=== PATIENT | male | born 1940 | race Caucasian/White ===

== ENCOUNTER 2022-08-26 11:38 | Inpatient (IN) | payer MEDICARE, MEDICAID ==
[~2022-08-26] VITALS: Ht 162.6 cm; Wt 86.6 kg
[~2022-08-26 11:38] MED LIST: ALBU18HF2 IH; ATEN50TA PO; CLOP75TA33 PO; FERR325T6 PO; FOLIC ACID PO; GLIP10TA10 PO; IBUP-2030 PO; LEVO500T2 MT; OLOP5DRO25 OP; OMEP20TA23 PO; PIOG45TA62 PO; SIMV-43 PO; SUCR1TAB PO; TAMS-11 PO
[2022-08-26] MEDS ORDERED: ALBUTEROL (0.083%) 2.5MG/3ML NEB HHN ONE ×2 (12:00→12:15)
[2022-08-26] MEDS ORDERED: VANCOMYCIN 1G PREMIX 200 ML IV ONE (12:00)
[2022-08-26] MEDS ORDERED: CALCIUM GLUCONATE 1GM PREMIX 50 ML IV ONE (12:00)
[2022-08-26] MEDS ORDERED: PIPERACILLIN/TAZ 3.375G PREMIX 50 ML IV ONE (12:00)
[2022-08-26] MEDS ORDERED: FUROSEMIDE 100MG/10ML VIAL IV STA (12:02)
[2022-08-26] MEDS ORDERED: DEXTROSE 50% WATER 50ML SYRINGE IV ONE (12:15)
[2022-08-26] MEDS ORDERED: INSULIN REGULAR (HUMULIN R) 300UNITS/3ML VIAL IV ONE (12:15)
[2022-08-26 12:53] LABS: BASOPHILS % 0.1 % (0.0-2.0); HEMATOCRIT. 29.5 % (42.0-52.0); HEMOGLOBIN. 9.6 g/dL (14.0-18.0); LYMPHOCYTES % 14.8 % (20.0-50.0); MEAN CORPUSCULAR HEMOGLOBIN 28.5 pg (28.0-32.0); MEAN CORPUSCULAR VOLUME 87.2 fL (80.0-94.0); MEAN PLATELET VOLUME 11.1 fl (7.4-10.4); MONOCYTES % 13.3 % (2.0-8.0); NEUTROPHILS % 71.8 % (40.0-76.0); PLATELET 79 x1000/uL (130-400); RED BLOOD CELL COUNT 3.38 mill/uL (4.7-6.1); RED CELL DISTRIBUTION WIDTH 15.8 % (11.6-14.6)
[2022-08-26 13:10] LABS: CHLORIDE 117 mEq/L (98-107)
[2022-08-26 13:14] LABS: BG BASE EXCESS -6.4 mmol/L (-2.0-2.0); BG CARBOXYHEMOGLOBIN 0.3 % (0.5-1.5); BG DEOXYHEMOGLOBIN 5.3 % (0.0-5.0); BG FRACTION INSPIRED OXYGEN 100; BG HCO3 ACT 16.5 mmol/L (22.0-26.0); BG METHEMOGLOBIN 0.4 % (0.0-1.5); BG OXYGEN SATURATION 94.7 % (92.0-98.5); BG PH 7.438 (7.350-7.450); BG PO2 79.2 mmHg (75.0-100.0); BG SAMPLE SITE RIGHT RADIAL; BG TOTAL HEMOGLOBIN 9.9 g/dL (12.0-18.0); BG VENT MODE HIGH FLOW
[2022-08-26 14:04] LABS: CREATINE KINASE 402 IU/L (39-308)
[2022-08-26] MEDS ORDERED: IPRATROPIUM/ALBUTEROL 0.5-3(2.5)MG/3ML NEB HHN PRN (14:15)
[2022-08-26] MEDS ORDERED: DEXTROSE 50% WATER 50ML SYRINGE IV PRN (14:15)
[2022-08-26] MEDS ORDERED: LEVOFLOXACIN 500MG PREMIX 100 ML IV NR (14:31)
[2022-08-26] MEDS: ASPIRIN 325MG EC TABLET PO ONE ×2 (15:56→16:26)
[2022-08-26] MEDS: BLOOD SUGAR DIAGNOSTIC STRIP TEST SCH ×2 (16:26→23:05)
[2022-08-26 16:36] LABS: CLARITY URINE CLEAR (CLEAR); COLOR URINE YELLOW (YELLOW); KETONES URINE TRACE (NEGATIVE); LEUKOCYTE ESTERASE URINE TRACE (NEGATIVE); NITRITE URINE NEGATIVE (NEGATIVE); OCCULT BLOOD URINE 1+ (NEGATIVE); PROTEIN URINE 1+ (NEGATIVE); SPECIFIC GRAVITY URINE 1.014 (1.005-1.030)
[2022-08-26] MEDS ORDERED: INSULIN LISPRO 100 UNITS/ML SUBCUT NR (16:45)
[2022-08-26] MEDS ORDERED: ACETYLCYSTEINE 200MG/ML 20% VIAL 4ML INH SCH (17:00)
[2022-08-26] MEDS: INSULIN LISPRO 100 UNITS/ML SUBCUT SCH (17:08)
[2022-08-26] MEDS ORDERED: FUROSEMIDE 40MG/4ML VIAL IVP SCH (17:15)
[2022-08-26 17:41] LABS: INR 1.5; PROTHROMBIN TIME 15.4 sec (9.6-11.0)
[2022-08-26] MEDS ORDERED: IPRATROPIUM/ALBUTEROL 0.5-3(2.5)MG/3ML NEB HHN SCH (18:00)
[2022-08-26] MEDS: METRONIDAZOLE 500MG TABLET PO SCH (22:00)
[2022-08-27] MEDS: INSULIN LISPRO 100 UNITS/ML SUBCUT SCH ×5 (00:29→21:32)
[2022-08-27 02:00] VITALS: BP 126/51
[2022-08-27 05:53] LABS: BASOPHILS % 0.1 % (0.0-2.0); EOSINOPHILS % 0.2 % (0.0-5.0); HEMATOCRIT. 27.3 % (42.0-52.0); HEMOGLOBIN. 9.2 g/dL (14.0-18.0); LYMPHOCYTES % 10.6 % (20.0-50.0); MEAN CORPUSCULAR HEMOGLOBIN 28.6 pg (28.0-32.0); MEAN PLATELET VOLUME 10.2 fl (7.4-10.4); MONOCYTES % 11.4 % (2.0-8.0); NEUTROPHILS % 77.7 % (40.0-76.0); PLATELET 69 x1000/uL (130-400); RED BLOOD CELL COUNT 3.21 mill/uL (4.7-6.1); RED CELL DISTRIBUTION WIDTH 15.5 % (11.6-14.6)
[2022-08-27] MEDS: METRONIDAZOLE 500MG TABLET PO SCH (06:00)
[2022-08-27] MEDS: BLOOD SUGAR DIAGNOSTIC STRIP TEST SCH ×4 (06:52→21:32)
[2022-08-27 07:22] LABS: CHLORIDE 119 mEq/L (98-107)
[2022-08-27 08:00] VITALS: BP 128/50
[2022-08-27] MEDS ORDERED: DEXT 5%/0.45% NACL 1000ML 1,000 ML IV SCH (08:00)
[2022-08-27] MEDS ORDERED: IPRATROPIUM BROMIDE (0.02%) 0.5MG/2.5ML NEB HHN PRN (08:11)
[2022-08-27] MEDS: METRONIDAZOLE 500 MG PREMIX 100 ML IV SCH ×2 (10:31→17:27)
[2022-08-27 10:41] LABS: BG BASE EXCESS -2.1 mmol/L (-2.0-2.0); BG CARBOXYHEMOGLOBIN 0.3 % (0.5-1.5); BG DEOXYHEMOGLOBIN 4.8 % (0.0-5.0); BG FRACTION INSPIRED OXYGEN 100; BG HCO3 ACT 21.5 mmol/L (22.0-26.0); BG OXYGEN SATURATION 95.2 % (92.0-98.5); BG OXYHEMOGLOBIN 94.9 % (94.0-97.0); BG PCO2 32.9 mmHg (35.0-45.0); BG PH 7.434 (7.350-7.450); BG PO2 83.9 mmHg (75.0-100.0); BG TOTAL HEMOGLOBIN 10.1 g/dL (12.0-18.0); BG VENT MODE VAPOTHERM
[2022-08-27] MEDS ORDERED: INFLUENZA VACCINE 05/PF 0.5 ML SYRINGE IM ONE (11:00)
[2022-08-27] MEDS ORDERED: PNEUMOCOCCAL 23-VAL P-SAC VAC 0.5 ML IM ONE (11:00)
[2022-08-27 12:00] VITALS: BP 126/65
[2022-08-27] MEDS: DEXTROSE 5% WATER 1,000 ML IV SCH (13:10)
[2022-08-27] MEDS ORDERED: LEVOFLOXACIN 250MG PREMIX 50 ML IV SCH (15:00)
[2022-08-27] MEDS: IPRATROPIUM BROMIDE (0.02%) 0.5MG/2.5ML NEB HHN SCH ×2 (15:35→20:50)
[2022-08-27] MEDS: ACETYLCYSTEINE 200MG/ML 20% VIAL 4ML INH SCH (15:36)
[2022-08-27 16:42] VITALS: BP 150/68
[2022-08-27 20:00] VITALS: BP 116/65
[2022-08-28] VITALS: BP 132/71
[2022-08-28] MEDS: IPRATROPIUM BROMIDE (0.02%) 0.5MG/2.5ML NEB HHN SCH ×6 (00:48→20:59)
[2022-08-28] MEDS: ACETYLCYSTEINE 200MG/ML 20% VIAL 4ML INH SCH ×3 (00:48→16:17)
[2022-08-28] MEDS: METRONIDAZOLE 500 MG PREMIX 100 ML IV SCH ×3 (01:12→18:26)
[2022-08-28 04:00] VITALS: BP 157/66
[2022-08-28 04:48] LABS: BASOPHILS % 0.1 % (0.0-2.0); EOSINOPHILS % 0.3 % (0.0-5.0); HEMATOCRIT. 29.7 % (42.0-52.0); HEMOGLOBIN. 10.1 g/dL (14.0-18.0); LYMPHOCYTES % 15.1 % (20.0-50.0); MEAN CORPUSCULAR HEMOGLOBIN 28.7 pg (28.0-32.0); MEAN CORPUSCULAR VOLUME 84.5 fL (80.0-94.0); MEAN PLATELET VOLUME 9.7 fl (7.4-10.4); MONOCYTES % 10.1 % (2.0-8.0); NEUTROPHILS % 74.4 % (40.0-76.0); PLATELET 79 x1000/uL (130-400); RED BLOOD CELL COUNT 3.52 mill/uL (4.7-6.1); RED CELL DISTRIBUTION WIDTH 15.2 % (11.6-14.6)
[2022-08-28 05:01] LABS: CHLORIDE 118 mEq/L (98-107)
[2022-08-28] MEDS: BLOOD SUGAR DIAGNOSTIC STRIP TEST SCH ×4 (06:14→21:18)
[2022-08-28] MEDS: INSULIN LISPRO 100 UNITS/ML SUBCUT SCH ×4 (06:25→21:23)
[2022-08-28] MEDS ORDERED: IPRATROPIUM BROMIDE (0.02%) 0.5MG/2.5ML NEB HHN PRN (07:58)
[2022-08-28 08:00] VITALS: BP 112/67
[2022-08-28] MEDS: DEXTROSE 5% WATER 1,000 ML IV SCH (09:42)
[2022-08-28 12:00] VITALS: BP 147/52
[2022-08-28] MEDS: VANCOMYCIN 1G PREMIX 200 ML IV SCH (13:03)
[2022-08-28] MEDS: LEVOFLOXACIN 500MG PREMIX 100 ML IV SCH (13:03)
[2022-08-28 16:00] VITALS: BP 123/50
[2022-08-28 20:00] VITALS: BP 121/52
[2022-08-29] VITALS: BP 144/64
[2022-08-29] MEDS: ACETYLCYSTEINE 200MG/ML 20% VIAL 4ML INH SCH ×3 (00:57→15:38)
[2022-08-29] MEDS: IPRATROPIUM BROMIDE (0.02%) 0.5MG/2.5ML NEB HHN SCH ×5 (00:57→21:08)
[2022-08-29] MEDS: METRONIDAZOLE 500 MG PREMIX 100 ML IV SCH ×3 (01:02→17:19)
[2022-08-29 04:00] VITALS: BP 137/60
[2022-08-29] MEDS: VANCOMYCIN 1G PREMIX 200 ML IV SCH (05:36)
[2022-08-29] MEDS: TAMSULOSIN HCL 0.4MG SR CAPSULE PO SCH (05:37)
[2022-08-29] MEDS: DEXTROSE 5% WATER 1,000 ML IV SCH (05:38)
[2022-08-29] MEDS: ONDANSETRON HCL 4MG/2ML INJ IV PRN ×2 (05:52→19:29)
[2022-08-29] MEDS: BLOOD SUGAR DIAGNOSTIC STRIP TEST SCH ×4 (06:44→20:47)
[2022-08-29] MEDS: OMEPRAZOLE 20MG CAPSULE EXTENDED RELEASE PO SCH ×3 (06:45→16:55)
[2022-08-29] MEDS: GLIPIZIDE 5MG TABLET PO SCH (06:45)
[2022-08-29] MEDS: INSULIN LISPRO 100 UNITS/ML SUBCUT SCH ×4 (06:54→20:45)
[2022-08-29 07:24] LABS: HEMATOCRIT. 30.5 % (42.0-52.0); HEMOGLOBIN. 10.3 g/dL (14.0-18.0); MEAN CORPUSCULAR HEMOGLOBIN 29.3 pg (28.0-32.0); MEAN CORPUSCULAR VOLUME 86.9 fL (80.0-94.0); MEAN PLATELET VOLUME 9.8 fl (7.4-10.4); PLATELET 81 x1000/uL (130-400); RED BLOOD CELL COUNT 3.51 mill/uL (4.7-6.1); RED CELL DISTRIBUTION WIDTH 15.8 % (11.6-14.6)
[2022-08-29 08:00] VITALS: BP 154/46
[2022-08-29 09:32] LABS: CHLORIDE 116 mEq/L (98-107)
[2022-08-29] MEDS: LEVOFLOXACIN 500MG PREMIX 100 ML IV SCH (11:09)
[2022-08-29] MEDS: CLOPIDOGREL 75MG TABLET PO SCH (11:58)
[2022-08-29 12:00] VITALS: BP 128/64
[2022-08-29 16:10] VITALS: BP 124/76
[2022-08-29] MEDS ORDERED: ACETAMINOPHEN 325MG TABLET PO PRN (16:45)
[2022-08-29 17:27] LABS: NUCLEATED RED BLOOD CELLS 2 /100 WBC; PLATELET ESTIMATE DECREASED
[2022-08-29 20:00] VITALS: BP 127/56
[2022-08-29] MEDS ORDERED: POTASSIUM CHLORIDE INJ 40 MEQ in DEXT 5% WATER 250 ML IV ONE (20:00)
[2022-08-29] MEDS: ATORVASTATIN CALCIUM 10MG TABLET PO SCH (20:44)
[2022-08-29] MEDS: PANTOPRAZOLE SODIUM 40 MG/VIAL IV SCH (20:47)
[2022-08-30] VITALS: BP 119/56
[2022-08-30] MEDS: VANCOMYCIN 1G PREMIX 200 ML IV SCH ×2 (00:44→18:23)
[2022-08-30] MEDS: DEXTROSE 5% WATER 1,000 ML IV SCH ×2 (00:44→21:22)
[2022-08-30] MEDS: ACETYLCYSTEINE 200MG/ML 20% VIAL 4ML INH SCH ×3 (00:54→17:32)
[2022-08-30] MEDS: IPRATROPIUM BROMIDE (0.02%) 0.5MG/2.5ML NEB HHN SCH ×6 (00:54→20:05)
[2022-08-30] MEDS: METRONIDAZOLE 500 MG PREMIX 100 ML IV SCH ×3 (02:08→18:17)
[2022-08-30 04:00] VITALS: BP 141/57
[2022-08-30] MEDS: BLOOD SUGAR DIAGNOSTIC STRIP TEST SCH ×4 (06:16→21:22)
[2022-08-30] MEDS: INSULIN LISPRO 100 UNITS/ML SUBCUT SCH ×4 (06:16→21:25)
[2022-08-30] MEDS: GLIPIZIDE 5MG TABLET PO SCH (07:10)
[2022-08-30 07:18] LABS: BASOPHILS % 0.1 % (0.0-2.0); EOSINOPHILS % 2.9 % (0.0-5.0); HEMATOCRIT. 32.7 % (42.0-52.0); HEMOGLOBIN. 10.8 g/dL (14.0-18.0); LYMPHOCYTES % 13.8 % (20.0-50.0); MEAN CORPUSCULAR VOLUME 87.6 fL (80.0-94.0); MEAN PLATELET VOLUME 9.7 fl (7.4-10.4); MONOCYTES % 10.7 % (2.0-8.0); NEUTROPHILS % 72.5 % (40.0-76.0); PLATELET 75 x1000/uL (130-400); RED BLOOD CELL COUNT 3.73 mill/uL (4.7-6.1)
[2022-08-30 07:34] LABS: CHLORIDE 116 mEq/L (98-107)
[2022-08-30 08:00] VITALS: BP 123/57
[2022-08-30] MEDS: PANTOPRAZOLE SODIUM 40 MG/VIAL IV SCH ×2 (09:52→21:20)
[2022-08-30] MEDS: CLOPIDOGREL 75MG TABLET PO SCH (09:53)
[2022-08-30] MEDS: TAMSULOSIN HCL 0.4MG SR CAPSULE PO SCH (09:53)
[2022-08-30] MEDS: LEVOFLOXACIN 500MG PREMIX 100 ML IV SCH (11:42)
[2022-08-30 12:00] VITALS: BP 151/69
[2022-08-30] MEDS: MEGESTROL ACETATE 400 MG/10 ML UDC PO SCH (12:15)
[2022-08-30 16:00] VITALS: BP 148/70
[2022-08-30 16:51] LABS: TOTAL IRON BINDING CAPACITY 212 ug/dL (250-450)
[2022-08-30 17:27] LABS: FERRITIN 1672 ng/mL (22-322)
[2022-08-30 17:35] LABS: FOLIC ACID (FOLATE) SERUM > 20.00 ng/mL (>5.38); VITAMIN B12 SERUM > 2000.0 pg/mL (211-911)
[2022-08-30 20:00] VITALS: BP 126/56
[2022-08-30] MEDS: ATORVASTATIN CALCIUM 10MG TABLET PO SCH (21:20)
[2022-08-31] VITALS: BP 141/68
[2022-08-31] MEDS: IPRATROPIUM BROMIDE (0.02%) 0.5MG/2.5ML NEB HHN SCH ×6 (00:30→20:12)
[2022-08-31] MEDS: ACETYLCYSTEINE 200MG/ML 20% VIAL 4ML INH SCH ×3 (00:31→17:14)
[2022-08-31] MEDS: METRONIDAZOLE 500 MG PREMIX 100 ML IV SCH ×3 (02:28→17:58)
[2022-08-31 04:00] VITALS: BP 138/54
[2022-08-31] MEDS: GLIPIZIDE 5MG TABLET PO SCH ×2 (06:43→07:03)
[2022-08-31] MEDS: INSULIN LISPRO 100 UNITS/ML SUBCUT SCH ×4 (06:44→21:38)
[2022-08-31] MEDS: BLOOD SUGAR DIAGNOSTIC STRIP TEST SCH ×4 (06:44→21:00)
[2022-08-31 06:50] LABS: INR 1.4; PROTHROMBIN TIME 14.2 sec (9.6-11.0)
[2022-08-31 06:54] LABS: BASOPHILS % 0.2 % (0.0-2.0); EOSINOPHILS % 3.2 % (0.0-5.0); HEMOGLOBIN. 10.8 g/dL (14.0-18.0); LYMPHOCYTES % 14.7 % (20.0-50.0); MEAN CORPUSCULAR HEMOGLOBIN 28.8 pg (28.0-32.0); MEAN CORPUSCULAR VOLUME 85.4 fL (80.0-94.0); MEAN PLATELET VOLUME 9.2 fl (7.4-10.4); MONOCYTES % 11.5 % (2.0-8.0); NEUTROPHILS % 70.4 % (40.0-76.0); PLATELET 80 x1000/uL (130-400); RED BLOOD CELL COUNT 3.75 mill/uL (4.7-6.1); RED CELL DISTRIBUTION WIDTH 15.4 % (11.6-14.6)
[2022-08-31 07:17] LABS: CHLORIDE 117 mEq/L (98-107)
[2022-08-31] MEDS: PANTOPRAZOLE SODIUM 40 MG/VIAL IV SCH ×2 (10:02→21:29)
[2022-08-31] MEDS: TAMSULOSIN HCL 0.4MG SR CAPSULE PO SCH (10:03)
[2022-08-31] MEDS: CLOPIDOGREL 75MG TABLET PO SCH (10:03)
[2022-08-31] MEDS: MEGESTROL ACETATE 400 MG/10 ML UDC PO SCH (10:03)
[2022-08-31 12:00] VITALS: BP 143/70
[2022-08-31 12:35] LABS: HEPATITIS B SURFACE ANTIGEN NEGATIVE
[2022-08-31] MEDS: VANCOMYCIN 1G PREMIX 200 ML IV SCH (12:44)
[2022-08-31] MEDS ORDERED: INSULIN GLARGINE 100 UNITS/ML SUBCUT NR (13:15)
[2022-08-31 16:00] VITALS: BP 133/61
[2022-08-31] MEDS ORDERED: BISACODYL 10MG SUPP PR NR (16:45)
[2022-08-31] MEDS: ONDANSETRON HCL 4MG/2ML INJ IV PRN (17:57)
[2022-08-31] MEDS: METOCLOPRAMIDE HCL 10MG/2ML VIAL IV SCH (17:57)
[2022-08-31] MEDS: DEXTROSE 5% WATER 1,000 ML IV SCH (17:58)
[2022-08-31 20:00] VITALS: BP 106/76
[2022-08-31] MEDS: ATORVASTATIN CALCIUM 10MG TABLET PO SCH (21:29)
[2022-08-31] MEDS: INSULIN GLARGINE 100 UNITS/ML SUBCUT SCH (21:38)
[2022-09-01] VITALS (7 sets, daily range): BP systolic 88–133; BP diastolic 38–58
[2022-09-01] MEDS: METOCLOPRAMIDE HCL 10MG/2ML VIAL IV SCH ×4 (00:09→18:03)
[2022-09-01] MEDS: IPRATROPIUM BROMIDE (0.02%) 0.5MG/2.5ML NEB HHN SCH ×6 (00:23→21:08)
[2022-09-01] MEDS: METRONIDAZOLE 500 MG PREMIX 100 ML IV SCH (01:05)
[2022-09-01 05:44] LABS: BASOPHILS % 0.4 % (0.0-2.0); EOSINOPHILS % 3.6 % (0.0-5.0); HEMATOCRIT. 32.1 % (42.0-52.0); HEMOGLOBIN. 10.8 g/dL (14.0-18.0); LYMPHOCYTES % 19.7 % (20.0-50.0); MEAN CORPUSCULAR HEMOGLOBIN 28.9 pg (28.0-32.0); MEAN CORPUSCULAR VOLUME 85.7 fL (80.0-94.0); MEAN PLATELET VOLUME 9.1 fl (7.4-10.4); MONOCYTES % 11.5 % (2.0-8.0); NEUTROPHILS % 64.8 % (40.0-76.0); PLATELET 86 x1000/uL (130-400); RED BLOOD CELL COUNT 3.75 mill/uL (4.7-6.1); RED CELL DISTRIBUTION WIDTH 15.7 % (11.6-14.6)
[2022-09-01 05:46] LABS: CHLORIDE 115 mEq/L (98-107)
[2022-09-01] MEDS: BLOOD SUGAR DIAGNOSTIC STRIP TEST SCH ×4 (05:53→21:00)
[2022-09-01] MEDS: VANCOMYCIN 1G PREMIX 200 ML IV SCH (05:53)
[2022-09-01] MEDS ORDERED: POTASSIUM CHLORIDE 20MEQ/PACKET PO NR (06:15)
[2022-09-01] MEDS: INSULIN LISPRO 100 UNITS/ML SUBCUT SCH ×4 (07:35→21:00)
[2022-09-01] MEDS: CLOPIDOGREL 75MG TABLET PO SCH (09:57)
[2022-09-01] MEDS: TAMSULOSIN HCL 0.4MG SR CAPSULE PO SCH (09:58)
[2022-09-01] MEDS: PANTOPRAZOLE SODIUM 40 MG/VIAL IV SCH ×2 (09:58→21:07)
[2022-09-01] MEDS: GLIPIZIDE 5MG TABLET PO SCH (09:58)
[2022-09-01] MEDS: MEGESTROL ACETATE 400 MG/10 ML UDC PO SCH (09:58)
[2022-09-01] MEDS: INSULIN GLARGINE 100 UNITS/ML SUBCUT SCH ×2 (10:00→22:00)
[2022-09-01] MEDS: DEXTROSE 5% WATER 1,000 ML IV SCH (12:22)
[2022-09-01] MEDS: DEXTROSE 50% WATER 50ML SYRINGE IV PRN (18:18)
[2022-09-01] MEDS: ATORVASTATIN CALCIUM 10MG TABLET PO SCH (21:07)
[2022-09-02] VITALS: BP 138/54
[2022-09-02] MEDS: METOCLOPRAMIDE HCL 10MG/2ML VIAL IV SCH ×5 (00:42→23:43)
[2022-09-02] MEDS: DEXTROSE 50% WATER 50ML SYRINGE IV PRN (00:44)
[2022-09-02] MEDS: VANCOMYCIN 1G PREMIX 200 ML IV SCH ×2 (00:44→17:36)
[2022-09-02] MEDS: IPRATROPIUM BROMIDE (0.02%) 0.5MG/2.5ML NEB HHN SCH ×4 (00:52→12:24)
[2022-09-02 04:00] VITALS: BP 146/76
[2022-09-02] MEDS: GLIPIZIDE 5MG TABLET PO SCH (05:14)
[2022-09-02] MEDS: BLOOD SUGAR DIAGNOSTIC STRIP TEST SCH ×4 (07:10→20:41)
[2022-09-02] MEDS: INSULIN LISPRO 100 UNITS/ML SUBCUT SCH ×4 (07:12→20:41)
[2022-09-02 08:00] VITALS: BP 130/73
[2022-09-02] MEDS: DEXTROSE 5% WATER 1,000 ML IV SCH (08:08)
[2022-09-02] MEDS: CLOPIDOGREL 75MG TABLET PO SCH (08:08)
[2022-09-02] MEDS: PANTOPRAZOLE SODIUM 40 MG/VIAL IV SCH ×2 (08:08→20:40)
[2022-09-02] MEDS: MEGESTROL ACETATE 400 MG/10 ML UDC PO SCH (08:08)
[2022-09-02] MEDS: TAMSULOSIN HCL 0.4MG SR CAPSULE PO SCH (08:11)
[2022-09-02] MEDS: INSULIN GLARGINE 100 UNITS/ML SUBCUT SCH ×2 (10:00→22:02)
[2022-09-02 12:00] VITALS: BP 137/68
[2022-09-02 12:00] LABS: BASOPHILS % 0.1 % (0.0-2.0); EOSINOPHILS % 1.8 % (0.0-5.0); HEMATOCRIT. 33.1 % (42.0-52.0); HEMOGLOBIN. 11.1 g/dL (14.0-18.0); MEAN CORPUSCULAR HEMOGLOBIN 28.9 pg (28.0-32.0); MEAN CORPUSCULAR VOLUME 85.9 fL (80.0-94.0); MONOCYTES % 9.8 % (2.0-8.0); NEUTROPHILS % 79.3 % (40.0-76.0); PLATELET 82 x1000/uL (130-400); RED BLOOD CELL COUNT 3.85 mill/uL (4.7-6.1); RED CELL DISTRIBUTION WIDTH 15.8 % (11.6-14.6)
[2022-09-02] MEDS ORDERED: SORBITOL 70% SOLN 30ML PO NR (14:45)
[2022-09-02 16:00] VITALS: BP 107/71
[2022-09-02 20:00] VITALS: BP 136/88
[2022-09-02] MEDS: ATORVASTATIN CALCIUM 10MG TABLET PO SCH (20:41)
[2022-09-03] VITALS (7 sets, daily range): BP systolic 101–138; BP diastolic 47–65
[2022-09-03] MEDS: METOCLOPRAMIDE HCL 10MG/2ML VIAL IV SCH ×4 (05:23→23:52)
[2022-09-03 06:13] LABS: BASOPHILS % 0.2 % (0.0-2.0); EOSINOPHILS % 2.4 % (0.0-5.0); HEMATOCRIT. 30.4 % (42.0-52.0); HEMOGLOBIN. 10.4 g/dL (14.0-18.0); LYMPHOCYTES % 15.9 % (20.0-50.0); MEAN CORPUSCULAR HEMOGLOBIN 28.8 pg (28.0-32.0); MEAN CORPUSCULAR VOLUME 84.8 fL (80.0-94.0); MEAN PLATELET VOLUME 9.1 fl (7.4-10.4); MONOCYTES % 9.5 % (2.0-8.0); PLATELET 74 x1000/uL (130-400); RED BLOOD CELL COUNT 3.59 mill/uL (4.7-6.1); RED CELL DISTRIBUTION WIDTH 15.3 % (11.6-14.6)
[2022-09-03] MEDS: DEXTROSE 50% WATER 50ML SYRINGE IV PRN (06:15)
[2022-09-03] MEDS: BLOOD SUGAR DIAGNOSTIC STRIP TEST SCH ×4 (06:29→21:12)
[2022-09-03] MEDS: INSULIN LISPRO 100 UNITS/ML SUBCUT SCH ×4 (06:29→21:00)
[2022-09-03] MEDS: GLIPIZIDE 5MG TABLET PO SCH (06:30)
[2022-09-03] MEDS: PANTOPRAZOLE SODIUM 40 MG/VIAL IV SCH ×2 (09:10→22:00)
[2022-09-03] MEDS: MEGESTROL ACETATE 400 MG/10 ML UDC PO SCH (09:10)
[2022-09-03] MEDS: CLOPIDOGREL 75MG TABLET PO SCH (09:11)
[2022-09-03] MEDS: TAMSULOSIN HCL 0.4MG SR CAPSULE PO SCH (09:11)
[2022-09-03] MEDS ORDERED: POTASSIUM CHLORIDE 20MEQ/PACKET PO NR (10:15)
[2022-09-03] MEDS ORDERED: BISACODYL 10MG SUPP PR NR (12:00)
[2022-09-03 13:35] LABS: BG BASE EXCESS 1.1 mmol/L (-2.0-2.0); BG CARBOXYHEMOGLOBIN 1.6 % (0.5-1.5); BG DEOXYHEMOGLOBIN 9.1 % (0.0-5.0); BG FRACTION INSPIRED OXYGEN 21; BG HCO3 ACT 24.3 mmol/L (22.0-26.0); BG METHEMOGLOBIN 0.2 % (0.0-1.5); BG OXYGEN SATURATION 90.7 % (92.0-98.5); BG OXYHEMOGLOBIN 89.1 % (94.0-97.0); BG PCO2 33.7 mmHg (35.0-45.0); BG PH 7.476 (7.350-7.450); BG PO2 53.6 mmHg (75.0-100.0); BG SAMPLE SITE LEFT BRACHIAL; BG TOTAL HEMOGLOBIN 11.5 g/dL (12.0-18.0); BG VENT MODE ROOM AIR
[2022-09-03] MEDS: ATORVASTATIN CALCIUM 10MG TABLET PO SCH (21:20)
[2022-09-04] VITALS: BP 109/77
[2022-09-04 04:00] VITALS: BP 121/56
[2022-09-04] MEDS: METOCLOPRAMIDE HCL 10MG/2ML VIAL IV SCH ×3 (05:33→17:33)
[2022-09-04] MEDS: BLOOD SUGAR DIAGNOSTIC STRIP TEST SCH ×3 (06:06→17:25)
[2022-09-04] MEDS: INSULIN LISPRO 100 UNITS/ML SUBCUT SCH ×3 (06:06→17:25)
[2022-09-04 06:26] LABS: BASOPHILS % 0.2 % (0.0-2.0); EOSINOPHILS % 2.8 % (0.0-5.0); HEMATOCRIT. 29.1 % (42.0-52.0); LYMPHOCYTES % 12.2 % (20.0-50.0); MEAN CORPUSCULAR HEMOGLOBIN 29.2 pg (28.0-32.0); MEAN CORPUSCULAR VOLUME 85.3 fL (80.0-94.0); MONOCYTES % 13.1 % (2.0-8.0); NEUTROPHILS % 71.7 % (40.0-76.0); PLATELET 76 x1000/uL (130-400); RED BLOOD CELL COUNT 3.42 mill/uL (4.7-6.1); RED CELL DISTRIBUTION WIDTH 15.6 % (11.6-14.6)
[2022-09-04 08:00] VITALS: BP 129/63
[2022-09-04] MEDS: TAMSULOSIN HCL 0.4MG SR CAPSULE PO SCH (08:54)
[2022-09-04] MEDS: CLOPIDOGREL 75MG TABLET PO SCH (08:54)
[2022-09-04] MEDS: GLIPIZIDE 5MG TABLET PO SCH (08:54)
[2022-09-04] MEDS: PANTOPRAZOLE SODIUM 40 MG/VIAL IV SCH (08:54)
[2022-09-04] MEDS: MEGESTROL ACETATE 400 MG/10 ML UDC PO SCH (08:54)
[2022-09-04 12:00] VITALS: BP 119/67
[2022-09-04] MEDS: DEXTROSE 5% WATER 1,000 ML IV SCH ×2 (12:50→12:51)
[2022-09-04 16:00] VITALS: BP 122/63
[2022-09-04 17:47] VITALS: BP 122/63
== END 2022-09-04 20:14 | disposition home or self-care (01) | DRG 177 ==
LOC: ER 11:38 → 8WST 13:46 → EDBEDREQSVC 23:54 → CANRESERV 08-27 00:04 → ENRESERV 08-27 00:04
PROVIDERS: ADMIT Internal Medicine; ATTEND Internal Medicine
PROC: 5A0935A Assistance with Respiratory Ventilation, Less than 24 Consecutive Hours, High Flow/Velocity Cannula (ICD-10-PCS; principal; 2022-08-26)
PROC: 5A0935A Assistance with Respiratory Ventilation, Less than 24 Consecutive Hours, High Flow/Velocity Cannula (ICD-10-PCS; 2022-08-27)
PROC: 5A0935A Assistance with Respiratory Ventilation, Less than 24 Consecutive Hours, High Flow/Velocity Cannula (ICD-10-PCS; 2022-08-28)
PROC: 5A0935A Assistance with Respiratory Ventilation, Less than 24 Consecutive Hours, High Flow/Velocity Cannula (ICD-10-PCS; 2022-08-29)
PROC: 5A0935A Assistance with Respiratory Ventilation, Less than 24 Consecutive Hours, High Flow/Velocity Cannula (ICD-10-PCS; 2022-08-30)
PROC: 5A0935A Assistance with Respiratory Ventilation, Less than 24 Consecutive Hours, High Flow/Velocity Cannula (ICD-10-PCS; 2022-08-31)
PROC: 5A0935A Assistance with Respiratory Ventilation, Less than 24 Consecutive Hours, High Flow/Velocity Cannula (ICD-10-PCS; 2022-09-01)
DX: J69.0 Pneumonitis due to inhalation of food and vomit (principal); I50.41 Acute combined systolic (congestive) and diastolic (congestive) heart failure; J96.01 Acute respiratory failure with hypoxia; E87.1 Hypo-osmolality and hyponatremia; E87.0 Hyperosmolality and hypernatremia; D68.9 Coagulation defect, unspecified; E87.20 Acidosis, unspecified; R47.01 Aphasia; D64.9 Anemia, unspecified; E87.5 Hyperkalemia; Z20.822 Contact with and (suspected) exposure to COVID-19; E87.6 Hypokalemia; E11.65 Type 2 diabetes mellitus with hyperglycemia; R74.01 Elevation of levels of liver transaminase levels; E78.5 Hyperlipidemia, unspecified; D69.6 Thrombocytopenia, unspecified; K75.9 Inflammatory liver disease, unspecified; I25.10 Atherosclerotic heart disease of native coronary artery without angina pectoris; I11.0 Hypertensive heart disease with heart failure; K59.00 Constipation, unspecified; Z79.899 Other long term (current) drug therapy; Z74.01 Bed confinement status; Z99.3 Dependence on wheelchair; I25.2 Old myocardial infarction
CPT/HCPCS: 36415; 36600; 71045; 71250; 74018; 76700; 80048; 80053; 80076; 80202; 81003; 82375; 82550; 82607; 82728; 82746; 82805; 82962; 83036; 83540; 83550; 83605; 83615; 83880; 84484; 85025; 85044; 86705; 86709; 86803; 86850; 86900; 87340; 87426; 87804; 90686; 90732; 92610; 93005; 94640; 94644; 94667; 97161; 99291; A6261; C1893; C9113; C9803; J0610; J1815; J1940; J1956; J2405; J2543; J2765; J3370; J3480; J3490; J7060; J7070; J7608

== ENCOUNTER 2022-09-11 13:26 | Inpatient (IN) | payer MEDICARE, MEDICAID ==
[~2022-09-11] VITALS: Ht 165.1 cm; Wt 76.7 kg
[~2022-09-11 13:26] MED LIST changes: -LEVO500T2 MT
[2022-09-11 14:33] LABS: BG BASE EXCESS -1.3 mmol/L (-2.0-2.0); BG CARBOXYHEMOGLOBIN 0.3 % (0.5-1.5); BG DEOXYHEMOGLOBIN 6.7 % (0.0-5.0); BG HCO3 ACT 22.8 mmol/L (22.0-26.0); BG METHEMOGLOBIN 0.3 % (0.0-1.5); BG OXYGEN SATURATION 93.3 % (92.0-98.5); BG OXYHEMOGLOBIN 92.7 % (94.0-97.0); BG PCO2 35.8 mmHg (35.0-45.0); BG PH 7.422 (7.350-7.450); BG PO2 67.8 mmHg (75.0-100.0); BG SAMPLE SITE LEFT BRACHIAL; BG TOTAL HEMOGLOBIN 10.5 g/dL (12.0-18.0); BG VENT MODE ROOM AIR
[2022-09-11 16:01] LABS: BASOPHILS % 0.5 % (0.0-2.0); EOSINOPHILS % 2.6 % (0.0-5.0); HEMATOCRIT. 30.9 % (42.0-52.0); HEMOGLOBIN. 10.3 g/dL (14.0-18.0); LYMPHOCYTES % 19.1 % (20.0-50.0); MEAN CORPUSCULAR HEMOGLOBIN 28.7 pg (28.0-32.0); MEAN CORPUSCULAR VOLUME 86.1 fL (80.0-94.0); MEAN PLATELET VOLUME 8.5 fl (7.4-10.4); MONOCYTES % 9.8 % (2.0-8.0); PLATELET 155 x1000/uL (130-400); RED BLOOD CELL COUNT 3.59 mill/uL (4.7-6.1); RED CELL DISTRIBUTION WIDTH 15.8 % (11.6-14.6)
[2022-09-11 16:10] LABS: CHLORIDE 114 mEq/L (98-107)
[2022-09-11 16:16] LABS: D-DIMER 7.99 mg/L FEU (<0.50); INR 1.2; PARTIAL THROMBOPLASTIN TIME 31.2 sec (23.4-31.0); PROTHROMBIN TIME 12.3 sec (9.6-11.0)
[2022-09-11 20:14] LABS: CLARITY URINE CLEAR (CLEAR); COLOR URINE YELLOW (YELLOW); KETONES URINE TRACE (NEGATIVE); LEUKOCYTE ESTERASE URINE 1+ (NEGATIVE); NITRITE URINE NEGATIVE (NEGATIVE); OCCULT BLOOD URINE 2+ (NEGATIVE); PROTEIN URINE TRACE (NEGATIVE); SPECIFIC GRAVITY URINE 1.017 (1.005-1.030); UROBILINOGEN URINE 0.2 E.U./dL (0.2-1.0)
[2022-09-11 22:30] VITALS: BP 131/57
[2022-09-12] VITALS: BP 122/54
[2022-09-12 01:20] LABS: BASOPHILS % 0.6 % (0.0-2.0); EOSINOPHILS % 2.5 % (0.0-5.0); HEMATOCRIT. 28.3 % (42.0-52.0); HEMOGLOBIN. 9.5 g/dL (14.0-18.0); LYMPHOCYTES % 19.2 % (20.0-50.0); MEAN CORPUSCULAR HEMOGLOBIN 28.7 pg (28.0-32.0); MEAN CORPUSCULAR VOLUME 85.3 fL (80.0-94.0); MEAN PLATELET VOLUME 8.3 fl (7.4-10.4); NEUTROPHILS % 66.7 % (40.0-76.0); PLATELET 148 x1000/uL (130-400); RED BLOOD CELL COUNT 3.31 mill/uL (4.7-6.1); RED CELL DISTRIBUTION WIDTH 15.3 % (11.6-14.6)
[2022-09-12 04:00] VITALS: BP 117/54
[2022-09-12] MEDS ORDERED: BLOOD SUGAR DIAGNOSTIC STRIP TEST SCH ×2 (07:40)
[2022-09-12 08:00] VITALS: BP 120/47
[2022-09-12] MEDS: ATENOLOL 50 MG TABLET PO SCH (08:17)
[2022-09-12] MEDS: CLOPIDOGREL 75MG TABLET PO SCH (08:19)
[2022-09-12] MEDS: OMEPRAZOLE 20MG CAPSULE EXTENDED RELEASE PO SCH (08:19)
[2022-09-12] MEDS: FERROUS SULFATE 325MG TABLET PO SCH ×2 (08:19→16:55)
[2022-09-12] MEDS: TAMSULOSIN HCL 0.4MG SR CAPSULE PO SCH (08:20)
[2022-09-12] MEDS ORDERED: DEXTROSE 5% WATER 1,000 ML IV SCH (11:45)
[2022-09-12 12:00] VITALS: BP 129/38
[2022-09-12] MEDS ORDERED: DEXTROSE 50% WATER 50ML SYRINGE IV PRN ×3 (12:00)
[2022-09-12] MEDS: BLOOD SUGAR DIAGNOSTIC STRIP TEST SCH ×3 (12:07→20:29)
[2022-09-12] MEDS: ENOXAPARIN 40MG/0.4ML SYR SUBCUT SCH (12:18)
[2022-09-12] MEDS: INSULIN LISPRO 100 UNITS/ML SUBCUT SCH ×3 (12:23→20:44)
[2022-09-12] MEDS ORDERED: IPRATROPIUM/ALBUTEROL 0.5-3(2.5)MG/3ML NEB HHN PRN (14:00)
[2022-09-12] MEDS ORDERED: IPRATROPIUM BROMIDE (0.02%) 0.5MG/2.5ML NEB HHN PRN (14:15)
[2022-09-12] MEDS ORDERED: ALBUTEROL (0.083%) 2.5MG/3ML NEB HHN PRN (14:15)
[2022-09-12 16:00] VITALS: BP 115/46
[2022-09-12 20:30] VITALS: BP 111/46
[2022-09-13] VITALS: BP 116/47
[2022-09-13 04:30] VITALS: BP 111/45
[2022-09-13] MEDS: BLOOD SUGAR DIAGNOSTIC STRIP TEST SCH ×4 (06:44→20:32)
[2022-09-13] MEDS: INSULIN LISPRO 100 UNITS/ML SUBCUT SCH ×4 (07:34→20:49)
[2022-09-13 08:00] VITALS: BP 132/48
[2022-09-13] MEDS: ATENOLOL 50 MG TABLET PO SCH (08:14)
[2022-09-13] MEDS: FUROSEMIDE 40MG/4ML VIAL IVP SCH (08:14)
[2022-09-13] MEDS: CLOPIDOGREL 75MG TABLET PO SCH (08:15)
[2022-09-13] MEDS: OMEPRAZOLE 20MG CAPSULE EXTENDED RELEASE PO SCH (08:15)
[2022-09-13] MEDS: TAMSULOSIN HCL 0.4MG SR CAPSULE PO SCH (08:15)
[2022-09-13] MEDS: FERROUS SULFATE 325MG TABLET PO SCH ×2 (08:15→16:31)
[2022-09-13 12:00] VITALS: BP 113/58
[2022-09-13] MEDS ORDERED: IPRATROPIUM BROMIDE (0.02%) 0.5MG/2.5ML NEB HHN PRN (12:00)
[2022-09-13] MEDS ORDERED: IPRATROPIUM/ALBUTEROL 0.5-3(2.5)MG/3ML NEB HHN SCH (12:00)
[2022-09-13] MEDS ORDERED: DOCUSATE SODIUM 250MG CAPSULE PO PRN (12:00)
[2022-09-13] MEDS: ENOXAPARIN 40MG/0.4ML SYR SUBCUT SCH (12:16)
[2022-09-13] MEDS: DOCUSATE SODIUM 250MG CAPSULE PO SCH (12:16)
[2022-09-13] MEDS: IPRATROPIUM BROMIDE (0.02%) 0.5MG/2.5ML NEB HHN SCH ×3 (13:27→20:12)
[2022-09-13] MEDS: ALBUTEROL (0.083%) 2.5MG/3ML NEB HHN SCH ×3 (13:27→20:12)
[2022-09-13 16:00] VITALS: BP 140/62
[2022-09-13 20:00] VITALS: BP 101/41
[2022-09-14] VITALS: BP 113/53
[2022-09-14] MEDS: ALBUTEROL (0.083%) 2.5MG/3ML NEB HHN SCH ×5 (00:03→17:23)
[2022-09-14] MEDS: IPRATROPIUM BROMIDE (0.02%) 0.5MG/2.5ML NEB HHN SCH ×5 (00:03→17:23)
[2022-09-14 03:54] VITALS: BP 133/52
[2022-09-14] MEDS: BLOOD SUGAR DIAGNOSTIC STRIP TEST SCH ×3 (06:40→17:40)
[2022-09-14 08:00] VITALS: BP 133/61
[2022-09-14] MEDS ORDERED: FAMOTIDINE 20MG TABLET PO SCH (09:00)
[2022-09-14] MEDS: FERROUS SULFATE 325MG TABLET PO SCH ×2 (09:48→17:00)
[2022-09-14] MEDS: DOCUSATE SODIUM 250MG CAPSULE PO SCH (09:48)
[2022-09-14] MEDS: FUROSEMIDE 40MG/4ML VIAL IVP SCH (09:48)
[2022-09-14] MEDS: CLOPIDOGREL 75MG TABLET PO SCH (09:49)
[2022-09-14] MEDS: TAMSULOSIN HCL 0.4MG SR CAPSULE PO SCH (09:49)
[2022-09-14] MEDS: ATENOLOL 50 MG TABLET PO SCH (09:49)
[2022-09-14] MEDS: INSULIN LISPRO 100 UNITS/ML SUBCUT SCH ×3 (09:56→18:40)
[2022-09-14] MEDS: ENOXAPARIN 40MG/0.4ML SYR SUBCUT SCH (13:11)
[2022-09-14 16:00] VITALS: BP 122/76
[2022-09-14 18:10] VITALS: BP 117/44
== END 2022-09-14 18:50 | disposition home or self-care (01) | DRG 291 ==
LOC: ER 13:26 → 7WST 16:23 → EDBEDREQ 16:36 → ENRESERV 21:29
PROVIDERS: ADMIT Internal Medicine; ATTEND Internal Medicine
DX: I11.0 Hypertensive heart disease with heart failure (principal); I50.41 Acute combined systolic (congestive) and diastolic (congestive) heart failure; I69.351 Hemiplegia and hemiparesis following cerebral infarction affecting right dominant side; E11.9 Type 2 diabetes mellitus without complications; E78.5 Hyperlipidemia, unspecified; K76.9 Liver disease, unspecified; Z20.822 Contact with and (suspected) exposure to COVID-19; Z87.01 Personal history of pneumonia (recurrent); Z79.899 Other long term (current) drug therapy; I69.320 Aphasia following cerebral infarction
CPT/HCPCS: 36415; 36600; 71045; 76705; 80048; 80053; 81003; 82140; 82375; 82805; 82962; 83036; 83605; 83880; 84484; 85025; 85379; 87426; 87804; 93005; 93306; 93970; 94640; 99291; C9803; J1650; J1815; J1940

== ENCOUNTER 2022-10-01 14:09 | Inpatient (IN) | payer MEDICARE, MEDICAID ==
[~2022-10-01] VITALS: Ht 162.6 cm; Wt 58.1 kg
[2022-10-01] MEDS ORDERED: SODIUM CHLORIDE 0.9% 1,000 ML IV ONE (14:30)
[2022-10-01 15:25] LABS: BASOPHILS % 0.2 % (0.0-2.0); EOSINOPHILS % 0.2 % (0.0-5.0); HEMATOCRIT. 29.4 % (42.0-52.0); HEMOGLOBIN. 9.6 g/dL (14.0-18.0); LYMPHOCYTES % 12.6 % (20.0-50.0); MEAN CORPUSCULAR HEMOGLOBIN 28.2 pg (28.0-32.0); MEAN CORPUSCULAR VOLUME 86.3 fL (80.0-94.0); MEAN PLATELET VOLUME 9.7 fl (7.4-10.4); MONOCYTES % 6.7 % (2.0-8.0); NEUTROPHILS % 80.3 % (40.0-76.0); PLATELET 120 x1000/uL (130-400); RED BLOOD CELL COUNT 3.41 mill/uL (4.7-6.1); RED CELL DISTRIBUTION WIDTH 16.4 % (11.6-14.6)
[2022-10-01] MEDS ORDERED: AZITHROMYCIN 500MG/250ML 250 ML IV NR (15:30)
[2022-10-01] MEDS ORDERED: FUROSEMIDE 40MG/4ML VIAL IVP NR (15:30)
[2022-10-01] MEDS ORDERED: CEFEPIME 2,000 MG in DEXT 5% WATER 100 ML IV NR (15:30)
[2022-10-01] MEDS ORDERED: VANCOMYCIN 1G PREMIX 200 ML IV NR (15:30)
[2022-10-01 15:46] LABS: CHLORIDE 112 mEq/L (98-107)
[2022-10-01 15:56] LABS: BETA HYDROXYBUTYRATE 1.6 mMol/L (0.0-0.3)
[2022-10-01] MEDS ORDERED: ETOMIDATE 2MG/ML 10ML VIAL IV ONE (16:15)
[2022-10-01] MEDS ORDERED: SUCCINYLCHOLINE CHLORIDE 200MG/10ML IV ONE (16:15)
[2022-10-01] MEDS ORDERED: FENTANYL 2500MCG/250ML PMX 250 ML IV ONE ×2 (16:30→17:00)
[2022-10-01] MEDS ORDERED: VECURONIUM BROMIDE 10 MG/VIAL IV ONE (16:30)
[2022-10-01] MEDS ORDERED: VECURONIUM BROMIDE 10 MG/VIAL IV NR (16:30)
[2022-10-01] MEDS ORDERED: PROPOFOL 10MG/ML 100ML 100 ML IV SCH (16:30)
[2022-10-01] MEDS ORDERED: DOCUSATE SODIUM 100MG CAPSULE PO PRN (18:45)
[2022-10-01] MEDS ORDERED: IPRATROPIUM/ALBUTEROL 0.5-3(2.5)MG/3ML NEB HHN PRN (18:45)
[2022-10-01] MEDS ORDERED: FUROSEMIDE 40MG/4ML VIAL IV SCH (18:45)
[2022-10-01] MEDS ORDERED: ACETAMINOPHEN 325MG TABLET PO PRN (18:45)
[2022-10-01] MEDS ORDERED: ONDANSETRON HCL 4MG/2ML INJ IV PRN (18:45)
[2022-10-01] MEDS ORDERED: TRAMADOL 50MG TABLET PO PRN (18:45)
[2022-10-01] MEDS ORDERED: MAGNESIUM/ALUMINUM HYDROXIDE/SIMETHICONE 30ML UDC PO PRN (18:45)
[2022-10-01] MEDS ORDERED: DEXTROSE 50% WATER 50ML SYRINGE IV PRN (19:00)
[2022-10-01] MEDS ORDERED: BLOOD SUGAR DIAGNOSTIC STRIP TEST SCH (19:00)
[2022-10-01] MEDS ORDERED: INSULIN LISPRO 100 UNITS/ML SUBCUT SCH (19:00)
[2022-10-01 19:05] LABS: CLARITY URINE CLEAR (CLEAR); COLOR URINE YELLOW (YELLOW); KETONES URINE TRACE (NEGATIVE); LEUKOCYTE ESTERASE URINE 1+ (NEGATIVE); NITRITE URINE NEGATIVE (NEGATIVE); OCCULT BLOOD URINE TRACE (NEGATIVE); PROTEIN URINE TRACE (NEGATIVE); SPECIFIC GRAVITY URINE 1.016 (1.005-1.030); UROBILINOGEN URINE 0.2 E.U./dL (0.2-1.0)
[2022-10-01] MEDS ORDERED: FENTANYL 2500MCG/250ML PMX 250 ML IV PRN (19:30)
[2022-10-01] MEDS ORDERED: MIDAZOLAM HCL 100 MG in SODIUM CHLORIDE 0.9% 80 ML IV PRN (19:30)
[2022-10-01 19:43] LABS: BG BASE EXCESS -2.6 mmol/L (-2.0-2.0); BG CARBOXYHEMOGLOBIN 0.3 % (0.5-1.5); BG DEOXYHEMOGLOBIN 5.7 % (0.0-5.0); BG FRACTION INSPIRED OXYGEN 100; BG HCO3 ACT 23.3 mmol/L (22.0-26.0); BG METHEMOGLOBIN 0.2 % (0.0-1.5); BG OXYGEN SATURATION 94.3 % (92.0-98.5); BG OXYHEMOGLOBIN 93.8 % (94.0-97.0); BG PCO2 45.4 mmHg (35.0-45.0); BG PH 7.329 (7.350-7.450); BG PO2 80.4 mmHg (75.0-100.0); BG SAMPLE SITE LEFT RADIAL; BG TOTAL HEMOGLOBIN 9.6 g/dL (12.0-18.0); BG VENT MODE VENT - AC
[2022-10-01] MEDS: CARVEDILOL 3.125 MG TABLET PO SCH (21:00)
[2022-10-01] MEDS: ENOXAPARIN 40MG/0.4ML SYR SUBCUT SCH (21:24)
[2022-10-01] MEDS: BLOOD SUGAR DIAGNOSTIC STRIP TEST SCH (21:24)
[2022-10-01] MEDS: PANTOPRAZOLE SODIUM 40 MG/VIAL IV SCH (21:25)
[2022-10-01] MEDS: INSULIN LISPRO 100 UNITS/ML SUBCUT SCH (21:40)
[2022-10-01] MEDS ORDERED: PIPERACILLIN/TAZ 3.375G PREMIX 50 ML IV NR (21:45)
[2022-10-01] MEDS ORDERED: PIPERACILLIN/TAZOBACTAM 3.375 G in DEXTROSE 5% WATER 50 ML IV SCH (22:00)
[2022-10-01] MEDS: INSULIN GLARGINE 100 UNITS/ML SUBCUT SCH (22:06)
[2022-10-02] VITALS (69 sets, daily range): BP systolic 88–180; BP diastolic 35–125
[2022-10-02] MEDS: ACETYLCYSTEINE 200MG/ML 20% VIAL 4ML INH SCH ×2 (00:24→15:45)
[2022-10-02] MEDS ORDERED: PROPOFOL 10MG/ML 100ML 100 ML IV ONE (04:00)
[2022-10-02] MEDS ORDERED: FUROSEMIDE 40MG/4ML VIAL IVP ONE (06:00)
[2022-10-02] MEDS: PIPERACILLIN/TAZOBACTAM 3.375 G in DEXTROSE 5% WATER 50 ML IV SCH ×3 (06:00→21:35)
[2022-10-02 06:08] LABS: BASOPHILS % 0.3 % (0.0-2.0); EOSINOPHILS % 1.1 % (0.0-5.0); HEMATOCRIT. 30.9 % (42.0-52.0); HEMOGLOBIN. 10.2 g/dL (14.0-18.0); LYMPHOCYTES % 25.1 % (20.0-50.0); MEAN CORPUSCULAR HEMOGLOBIN 28.4 pg (28.0-32.0); MEAN CORPUSCULAR VOLUME 86.1 fL (80.0-94.0); MEAN PLATELET VOLUME 9.6 fl (7.4-10.4); MONOCYTES % 5.8 % (2.0-8.0); NEUTROPHILS % 67.7 % (40.0-76.0); PLATELET 115 x1000/uL (130-400); RED BLOOD CELL COUNT 3.58 mill/uL (4.7-6.1)
[2022-10-02 06:18] LABS: CHLORIDE 118 mEq/L (98-107)
[2022-10-02 06:28] LABS: HDL CHOLESTEROL 58 mg/dL (40-59); LDL CHOLESTEROL 99 mg/dL (5-100)
[2022-10-02] MEDS: INSULIN LISPRO 100 UNITS/ML SUBCUT SCH ×4 (06:30→21:38)
[2022-10-02] MEDS: BLOOD SUGAR DIAGNOSTIC STRIP TEST SCH ×4 (06:40→20:30)
[2022-10-02] MEDS ORDERED: NOREPINEPHRINE 8MG/250ML PMX 250 ML IV PRN (07:30)
[2022-10-02] MEDS: IPRATROPIUM/ALBUTEROL 0.5-3(2.5)MG/3ML NEB HHN SCH ×5 (07:42→23:25)
[2022-10-02] MEDS ORDERED: NOREPINEPHRINE 8 MG in DEXTROSE 5% WATER 250 ML IV PRN (07:45)
[2022-10-02] MEDS ORDERED: KCL 20MEQ/100ML PREMIX 100 ML IV NR (09:00)
[2022-10-02] MEDS ORDERED: FUROSEMIDE 40MG/4ML VIAL IVP SCH (09:00)
[2022-10-02] MEDS: CARVEDILOL 3.125 MG TABLET PO SCH ×2 (09:00→21:00)
[2022-10-02 09:33] LABS: BG BASE EXCESS -0.6 mmol/L (-2.0-2.0); BG CARBOXYHEMOGLOBIN 0.6 % (0.5-1.5); BG DEOXYHEMOGLOBIN 35.3 % (0.0-5.0); BG FRACTION INSPIRED OXYGEN 100; BG HCO3 ACT 25.7 mmol/L (22.0-26.0); BG METHEMOGLOBIN 0.2 % (0.0-1.5); BG OXYGEN SATURATION 64.4 % (92.0-98.5); BG OXYHEMOGLOBIN 63.9 % (94.0-97.0); BG PCO2 48.6 mmHg (35.0-45.0); BG PH 7.341 (7.350-7.450); BG PO2 36.1 mmHg (75.0-100.0); BG SAMPLE SITE LEFT RADIAL; BG TOTAL HEMOGLOBIN 13.4 g/dL (12.0-18.0); BG VENT MODE VENT - AC
[2022-10-02] MEDS ORDERED: ETOMIDATE 2MG/ML 10ML VIAL IV ONE (09:44)
[2022-10-02 11:06] LABS: BG BASE EXCESS -1.2 mmol/L (-2.0-2.0); BG CARBOXYHEMOGLOBIN 0.3 % (0.5-1.5); BG DEOXYHEMOGLOBIN 1.4 % (0.0-5.0); BG FRACTION INSPIRED OXYGEN 100; BG HCO3 ACT 24.9 mmol/L (22.0-26.0); BG METHEMOGLOBIN 0.1 % (0.0-1.5); BG OXYGEN SATURATION 98.6 % (92.0-98.5); BG OXYHEMOGLOBIN 98.2 % (94.0-97.0); BG PCO2 47.5 mmHg (35.0-45.0); BG PH 7.337 (7.350-7.450); BG PO2 175.6 mmHg (75.0-100.0); BG SAMPLE SITE LEFT RADIAL; BG TOTAL HEMOGLOBIN 11.4 g/dL (12.0-18.0); BG VENT MODE VENT - AC
[2022-10-02] MEDS ORDERED: SODIUM BICARBONATE 8.4% 1 MEQ/ML 50ML SYR IV ONE (11:18)
[2022-10-02] MEDS ORDERED: EPINEPHRINE 0.1MG/ML (1:10,000) 10ML SYR ONE (11:18)
[2022-10-02] MEDS: PANTOPRAZOLE SODIUM 40 MG/VIAL IV SCH (11:58)
[2022-10-02] MEDS: DOXYCYCLINE 100 MG in DEXT 5% WATER 100 ML IV SCH ×2 (11:58→21:35)
[2022-10-02] MEDS: FUROSEMIDE 40MG/4ML VIAL IV SCH ×2 (11:58→17:44)
[2022-10-02] MEDS: KCL 20MEQ/100ML PREMIX 100 ML IV SCH ×2 (11:59→14:49)
[2022-10-02 13:09] LABS: PHOSPHORUS 3.7 mg/dL (2.5-4.9)
[2022-10-02] MEDS ORDERED: ATROPINE SULFATE 1MG/ML VIAL IV PRN (15:15)
[2022-10-02] MEDS ORDERED: ATROPINE SULFATE 1MG/10ML SYR ONE (15:27)
[2022-10-02] MEDS ORDERED: NALOXONE HCL 0.4MG/ML VIAL IV PRN (20:00)
[2022-10-02] MEDS: ENOXAPARIN 40MG/0.4ML SYR SUBCUT SCH (20:30)
[2022-10-02] MEDS: NOREPINEPHRINE 8 MG in DEXT 5% WATER 242 ML IV PRN (21:36)
[2022-10-02] MEDS: INSULIN GLARGINE 100 UNITS/ML SUBCUT SCH (21:38)
[2022-10-03] VITALS (92 sets, daily range): BP systolic 64–147; BP diastolic 32–100
[2022-10-03] MEDS: IPRATROPIUM/ALBUTEROL 0.5-3(2.5)MG/3ML NEB HHN SCH ×5 (03:54→20:27)
[2022-10-03] MEDS: PIPERACILLIN/TAZOBACTAM 3.375 G in DEXTROSE 5% WATER 50 ML IV SCH ×3 (05:34→21:19)
[2022-10-03] MEDS: FUROSEMIDE 40MG/4ML VIAL IV SCH ×2 (05:34→17:37)
[2022-10-03] MEDS: NOREPINEPHRINE 8 MG in DEXT 5% WATER 242 ML IV PRN (05:37)
[2022-10-03 05:42] LABS: BASOPHILS % 0.1 % (0.0-2.0); HEMATOCRIT. 31.7 % (42.0-52.0); HEMOGLOBIN. 10.4 g/dL (14.0-18.0); LYMPHOCYTES % 11.1 % (20.0-50.0); MEAN CORPUSCULAR VOLUME 85.5 fL (80.0-94.0); MEAN PLATELET VOLUME 9.6 fl (7.4-10.4); MONOCYTES % 5.7 % (2.0-8.0); NEUTROPHILS % 82.1 % (40.0-76.0); PLATELET 177 x1000/uL (130-400); RED CELL DISTRIBUTION WIDTH 16.2 % (11.6-14.6)
[2022-10-03 05:58] LABS: CHLORIDE 118 mEq/L (98-107)
[2022-10-03 06:07] LABS: INR 1.3; PARTIAL THROMBOPLASTIN TIME 38.1 sec (23.4-31.0); PROTHROMBIN TIME 13.6 sec (9.6-11.0)
[2022-10-03] MEDS: INSULIN LISPRO 100 UNITS/ML SUBCUT SCH ×4 (07:06→21:00)
[2022-10-03] MEDS: BLOOD SUGAR DIAGNOSTIC STRIP TEST SCH ×4 (07:06→21:00)
[2022-10-03 08:42] LABS: BG BASE EXCESS 1.1 mmol/L (-2.0-2.0); BG CARBOXYHEMOGLOBIN 0.3 % (0.5-1.5); BG DEOXYHEMOGLOBIN 1.3 % (0.0-5.0); BG FRACTION INSPIRED OXYGEN 75; BG HCO3 ACT 25.3 mmol/L (22.0-26.0); BG METHEMOGLOBIN 0.3 % (0.0-1.5); BG OXYGEN SATURATION 98.7 % (92.0-98.5); BG OXYHEMOGLOBIN 98.1 % (94.0-97.0); BG PCO2 38.5 mmHg (35.0-45.0); BG PH 7.435 (7.350-7.450); BG PO2 230.4 mmHg (75.0-100.0); BG SAMPLE SITE RIGHT BRACHIAL; BG VENT MODE VENT - AC
[2022-10-03] MEDS: CARVEDILOL 3.125 MG TABLET PO SCH ×2 (08:57→21:00)
[2022-10-03] MEDS: DOXYCYCLINE 100 MG in DEXT 5% WATER 100 ML IV SCH ×2 (09:38→21:19)
[2022-10-03] MEDS: PANTOPRAZOLE SODIUM 40 MG/VIAL IV SCH (09:38)
[2022-10-03] MEDS: DOPAMINE 400MG/250ML PREMIX 250 ML IV SCH (09:38)
[2022-10-03] MEDS: ENOXAPARIN 40MG/0.4ML SYR SUBCUT SCH (21:20)
[2022-10-03] MEDS: INSULIN GLARGINE 100 UNITS/ML SUBCUT SCH (23:55)
[2022-10-04] VITALS (94 sets, daily range): BP systolic 86–119; BP diastolic 36–81
[2022-10-04] MEDS: ACETYLCYSTEINE 200MG/ML 20% VIAL 4ML INH SCH ×2 (00:24→00:33)
[2022-10-04] MEDS: IPRATROPIUM/ALBUTEROL 0.5-3(2.5)MG/3ML NEB HHN SCH ×6 (00:25→20:23)
[2022-10-04 05:46] LABS: BASOPHILS % 0.2 % (0.0-2.0); EOSINOPHILS % 1.9 % (0.0-5.0); HEMATOCRIT. 29.5 % (42.0-52.0); HEMOGLOBIN. 9.5 g/dL (14.0-18.0); LYMPHOCYTES % 10.1 % (20.0-50.0); MEAN CORPUSCULAR HEMOGLOBIN 27.2 pg (28.0-32.0); MEAN CORPUSCULAR VOLUME 84.4 fL (80.0-94.0); MEAN PLATELET VOLUME 9.5 fl (7.4-10.4); MONOCYTES % 5.3 % (2.0-8.0); NEUTROPHILS % 82.5 % (40.0-76.0); PLATELET 108 x1000/uL (130-400); RED BLOOD CELL COUNT 3.49 mill/uL (4.7-6.1); RED CELL DISTRIBUTION WIDTH 16.5 % (11.6-14.6)
[2022-10-04 05:52] LABS: CHLORIDE 115 mEq/L (98-107)
[2022-10-04] MEDS: PIPERACILLIN/TAZOBACTAM 3.375 G in DEXTROSE 5% WATER 50 ML IV SCH ×3 (06:07→22:03)
[2022-10-04] MEDS: INSULIN LISPRO 100 UNITS/ML SUBCUT SCH ×4 (07:50→21:00)
[2022-10-04] MEDS: BLOOD SUGAR DIAGNOSTIC STRIP TEST SCH ×4 (07:50→21:00)
[2022-10-04] MEDS: CARVEDILOL 3.125 MG TABLET PO SCH ×2 (08:03→21:00)
[2022-10-04] MEDS: DOXYCYCLINE 100 MG in DEXT 5% WATER 100 ML IV SCH ×2 (08:12→22:03)
[2022-10-04] MEDS: PANTOPRAZOLE SODIUM 40 MG/VIAL IV SCH (08:12)
[2022-10-04] MEDS: DOPAMINE 400MG/250ML PREMIX 250 ML IV SCH (08:12)
[2022-10-04] MEDS: FUROSEMIDE 40MG/4ML VIAL IV SCH ×2 (08:12→16:19)
[2022-10-04 09:10] LABS: BG BASE EXCESS 3.1 mmol/L (-2.0-2.0); BG CARBOXYHEMOGLOBIN 0.2 % (0.5-1.5); BG DEOXYHEMOGLOBIN 1.8 % (0.0-5.0); BG FRACTION INSPIRED OXYGEN 50; BG HCO3 ACT 26.9 mmol/L (22.0-26.0); BG METHEMOGLOBIN 0.3 % (0.0-1.5); BG OXYGEN SATURATION 98.2 % (92.0-98.5); BG OXYHEMOGLOBIN 97.7 % (94.0-97.0); BG PH 7.468 (7.350-7.450); BG PO2 119.2 mmHg (75.0-100.0); BG SAMPLE SITE RIGHT RADIAL; BG TOTAL HEMOGLOBIN 10.6 g/dL (12.0-18.0); BG TOTAL RESPIRATORY RATE 20 b/min; BG VENT MODE VENT - AC
[2022-10-04] MEDS ORDERED: LIDOCAINE HCL 1% 10 MG/ML 10ML VIAL ONE (09:22)
[2022-10-04] MEDS ORDERED: SODIUM BICARBONATE 4% (2.4MEQ) 5ML VIAL IV ONE (09:22)
[2022-10-04] MEDS ORDERED: LACTULOSE 20G/30ML UDC PO PRN (10:00)
[2022-10-04] MEDS: NOREPINEPHRINE 8 MG in DEXT 5% WATER 242 ML IV PRN (13:49)
[2022-10-04] MEDS ORDERED: ACETAZOLAMIDE SODIUM 500MG/VIAL IV SCH (15:00)
[2022-10-04] MEDS: ENOXAPARIN 30MG/0.3ML SYR SUBCUT SCH (18:00)
[2022-10-04] MEDS: INSULIN GLARGINE 100 UNITS/ML SUBCUT SCH (22:00)
[2022-10-05] VITALS (98 sets, daily range): BP systolic 79–133; BP diastolic 29–78
[2022-10-05] MEDS: IPRATROPIUM/ALBUTEROL 0.5-3(2.5)MG/3ML NEB HHN SCH ×6 (00:34→19:46)
[2022-10-05] MEDS: DOPAMINE 400MG/250ML PREMIX 250 ML IV SCH ×2 (06:19→07:00)
[2022-10-05] MEDS: FUROSEMIDE 40MG/4ML VIAL IV SCH (06:19)
[2022-10-05] MEDS: PIPERACILLIN/TAZOBACTAM 3.375 G in DEXTROSE 5% WATER 50 ML IV SCH ×3 (06:20→21:17)
[2022-10-05 06:38] LABS: CHLORIDE 111 mEq/L (98-107)
[2022-10-05] MEDS: BLOOD SUGAR DIAGNOSTIC STRIP TEST SCH ×4 (08:13→21:08)
[2022-10-05] MEDS: CARVEDILOL 3.125 MG TABLET PO SCH (08:14)
[2022-10-05] MEDS: PANTOPRAZOLE SODIUM 40 MG/VIAL IV SCH (08:18)
[2022-10-05] MEDS: DOXYCYCLINE 100 MG in DEXT 5% WATER 100 ML IV SCH ×2 (08:18→21:17)
[2022-10-05] MEDS: INSULIN LISPRO 100 UNITS/ML SUBCUT SCH ×4 (08:21→21:15)
[2022-10-05] MEDS ORDERED: NOREPINEPHRINE 8 MG in DEXT 5% WATER 242 ML IV PRN (08:39)
[2022-10-05 08:51] LABS: BG BASE EXCESS 3.8 mmol/L (-2.0-2.0); BG CARBOXYHEMOGLOBIN 0.3 % (0.5-1.5); BG DEOXYHEMOGLOBIN 1.4 % (0.0-5.0); BG FRACTION INSPIRED OXYGEN 40; BG HCO3 ACT 27.4 mmol/L (22.0-26.0); BG METHEMOGLOBIN 0.3 % (0.0-1.5); BG OXYGEN SATURATION 98.6 % (92.0-98.5); BG PCO2 37.1 mmHg (35.0-45.0); BG PH 7.486 (7.350-7.450); BG PO2 148.5 mmHg (75.0-100.0); BG SAMPLE SITE LEFT RADIAL; BG TOTAL HEMOGLOBIN 9.7 g/dL (12.0-18.0); BG TOTAL RESPIRATORY RATE 16 b/min; BG VENT MODE VENT - AC
[2022-10-05 10:39] LABS: BASOPHILS % 0.1 % (0.0-2.0); EOSINOPHILS % 0.5 % (0.0-5.0); HEMATOCRIT. 27.1 % (42.0-52.0); LYMPHOCYTES % 10.2 % (20.0-50.0); MEAN CORPUSCULAR HEMOGLOBIN 28.1 pg (28.0-32.0); MEAN CORPUSCULAR VOLUME 84.8 fL (80.0-94.0); MONOCYTES % 7.9 % (2.0-8.0); NEUTROPHILS % 81.3 % (40.0-76.0); PLATELET 101 x1000/uL (130-400); RED BLOOD CELL COUNT 3.19 mill/uL (4.7-6.1); RED CELL DISTRIBUTION WIDTH 15.8 % (11.6-14.6)
[2022-10-05] MEDS: ENOXAPARIN 30MG/0.3ML SYR SUBCUT SCH (18:25)
[2022-10-05] MEDS: INSULIN GLARGINE 100 UNITS/ML SUBCUT SCH (21:16)
[2022-10-05] MEDS: ACETYLCYSTEINE 200MG/ML 20% VIAL 4ML INH SCH (22:00)
[2022-10-06] VITALS (97 sets, daily range): BP systolic 84–134; BP diastolic 32–76
[2022-10-06] MEDS: IPRATROPIUM/ALBUTEROL 0.5-3(2.5)MG/3ML NEB HHN SCH ×7 (00:01→23:45)
[2022-10-06 05:44] LABS: BASOPHILS % 0.2 % (0.0-2.0); EOSINOPHILS % 0.8 % (0.0-5.0); HEMATOCRIT. 26.8 % (42.0-52.0); HEMOGLOBIN. 8.9 g/dL (14.0-18.0); LYMPHOCYTES % 14.9 % (20.0-50.0); MEAN CORPUSCULAR HEMOGLOBIN 28.1 pg (28.0-32.0); MEAN CORPUSCULAR VOLUME 84.4 fL (80.0-94.0); MEAN PLATELET VOLUME 8.9 fl (7.4-10.4); MONOCYTES % 9.5 % (2.0-8.0); NEUTROPHILS % 74.6 % (40.0-76.0); PLATELET 95 x1000/uL (130-400); RED BLOOD CELL COUNT 3.17 mill/uL (4.7-6.1); RED CELL DISTRIBUTION WIDTH 15.5 % (11.6-14.6)
[2022-10-06 05:56] LABS: CHLORIDE 111 mEq/L (98-107)
[2022-10-06] MEDS: PIPERACILLIN/TAZOBACTAM 3.375 G in DEXTROSE 5% WATER 50 ML IV SCH (06:03)
[2022-10-06] MEDS: BLOOD SUGAR DIAGNOSTIC STRIP TEST SCH ×4 (07:50→21:07)
[2022-10-06] MEDS ORDERED: POTASSIUM CHLORIDE INJ 40 MEQ in DEXT 5% WATER 250 ML IV ONE (08:30)
[2022-10-06] MEDS: ACETYLCYSTEINE 200MG/ML 20% VIAL 4ML INH SCH (08:40)
[2022-10-06] MEDS ORDERED: KCL 20MEQ/100ML PREMIX 100 ML IV SCH (08:45)
[2022-10-06] MEDS: FUROSEMIDE 40MG/4ML VIAL IV SCH (09:14)
[2022-10-06] MEDS: KCL 20MEQ/100ML X 2 FOR TOTAL KCL 40MEQ/200ML IV SCH ×2 (09:14→11:58)
[2022-10-06] MEDS: PANTOPRAZOLE SODIUM 40 MG/VIAL IV SCH (09:14)
[2022-10-06] MEDS: DOPAMINE 400MG/250ML PREMIX 250 ML IV SCH (09:14)
[2022-10-06] MEDS: INSULIN LISPRO 100 UNITS/ML SUBCUT SCH ×4 (09:15→21:11)
[2022-10-06 10:04] LABS: BG BASE EXCESS 2.2 mmol/L (-2.0-2.0); BG CARBOXYHEMOGLOBIN 0.3 % (0.5-1.5); BG DEOXYHEMOGLOBIN 4.7 % (0.0-5.0); BG FRACTION INSPIRED OXYGEN 30; BG HCO3 ACT 25.8 mmol/L (22.0-26.0); BG METHEMOGLOBIN 0.2 % (0.0-1.5); BG OXYGEN SATURATION 95.3 % (92.0-98.5); BG OXYHEMOGLOBIN 94.8 % (94.0-97.0); BG PCO2 35.7 mmHg (35.0-45.0); BG PH 7.476 (7.350-7.450); BG SAMPLE SITE RIGHT RADIAL; BG TOTAL HEMOGLOBIN 9.2 g/dL (12.0-18.0); BG VENT MODE VENT - AC
[2022-10-06 12:19] LABS: BG BASE EXCESS 3.4 mmol/L (-2.0-2.0); BG FRACTION INSPIRED OXYGEN 35; BG HCO3 ACT 27.4 mmol/L (22.0-26.0); BG METHEMOGLOBIN 0.2 % (0.0-1.5); BG OXYHEMOGLOBIN 96.8 % (94.0-97.0); BG PCO2 39.2 mmHg (35.0-45.0); BG PH 7.463 (7.350-7.450); BG PO2 97.7 mmHg (75.0-100.0); BG SAMPLE SITE RIGHT RADIAL; BG TOTAL HEMOGLOBIN 8.7 g/dL (12.0-18.0); BG VENT MODE VENT - CPAP
[2022-10-06] MEDS: ENOXAPARIN 30MG/0.3ML SYR SUBCUT SCH (17:45)
[2022-10-06] MEDS: INSULIN GLARGINE 100 UNITS/ML SUBCUT SCH (21:13)
[2022-10-07] VITALS (63 sets, daily range): BP systolic 91–134; BP diastolic 43–107
[2022-10-07 06:37] LABS: BASOPHILS % 0.1 % (0.0-2.0); EOSINOPHILS % 1.8 % (0.0-5.0); HEMOGLOBIN. 8.5 g/dL (14.0-18.0); LYMPHOCYTES % 13.2 % (20.0-50.0); MEAN CORPUSCULAR HEMOGLOBIN 27.9 pg (28.0-32.0); MEAN CORPUSCULAR VOLUME 85.1 fL (80.0-94.0); MONOCYTES % 12.5 % (2.0-8.0); NEUTROPHILS % 72.4 % (40.0-76.0); PLATELET 76 x1000/uL (130-400); RED BLOOD CELL COUNT 3.06 mill/uL (4.7-6.1); RED CELL DISTRIBUTION WIDTH 15.8 % (11.6-14.6)
[2022-10-07 06:47] LABS: CHLORIDE 111 mEq/L (98-107)
[2022-10-07] MEDS: DOPAMINE 400MG/250ML PREMIX 250 ML IV SCH (07:00)
[2022-10-07] MEDS: BLOOD SUGAR DIAGNOSTIC STRIP TEST SCH ×3 (07:45→21:00)
[2022-10-07] MEDS: FUROSEMIDE 40MG/4ML VIAL IV SCH (08:12)
[2022-10-07] MEDS: PANTOPRAZOLE SODIUM 40 MG/VIAL IV SCH (08:12)
[2022-10-07] MEDS: INSULIN LISPRO 100 UNITS/ML SUBCUT SCH ×3 (08:13→21:00)
[2022-10-07 09:36] LABS: BG BASE EXCESS 2.9 mmol/L (-2.0-2.0); BG CARBOXYHEMOGLOBIN 0.3 % (0.5-1.5); BG DEOXYHEMOGLOBIN 2.5 % (0.0-5.0); BG FRACTION INSPIRED OXYGEN 40; BG HCO3 ACT 26.8 mmol/L (22.0-26.0); BG METHEMOGLOBIN 0.3 % (0.0-1.5); BG OXYGEN SATURATION 97.5 % (92.0-98.5); BG OXYHEMOGLOBIN 96.9 % (94.0-97.0); BG PCO2 38.1 mmHg (35.0-45.0); BG PH 7.465 (7.350-7.450); BG PO2 105.6 mmHg (75.0-100.0); BG SAMPLE SITE RIGHT RADIAL; BG TOTAL HEMOGLOBIN 9.2 g/dL (12.0-18.0); BG VENT MODE VENT - SIMV
[2022-10-07 12:31] LABS: BG BASE EXCESS 4.2 mmol/L (-2.0-2.0); BG CARBOXYHEMOGLOBIN 0.7 % (0.5-1.5); BG DEOXYHEMOGLOBIN 1.4 % (0.0-5.0); BG FRACTION INSPIRED OXYGEN 40; BG HCO3 ACT 27.8 mmol/L (22.0-26.0); BG METHEMOGLOBIN 0.3 % (0.0-1.5); BG OXYGEN SATURATION 98.6 % (92.0-98.5); BG OXYHEMOGLOBIN 97.6 % (94.0-97.0); BG PCO2 37.6 mmHg (35.0-45.0); BG PH 7.487 (7.350-7.450); BG PO2 127.7 mmHg (75.0-100.0); BG SAMPLE SITE RIGHT RADIAL; BG TOTAL HEMOGLOBIN 8.1 g/dL (12.0-18.0); BG VENT MODE VENT - CPAP
[2022-10-07 17:52] LABS: BG BASE EXCESS 7.2 mmol/L (-2.0-2.0); BG CARBOXYHEMOGLOBIN 0.3 % (0.5-1.5); BG DEOXYHEMOGLOBIN 2.3 % (0.0-5.0); BG FRACTION INSPIRED OXYGEN 40; BG HCO3 ACT 32.1 mmol/L (22.0-26.0); BG METHEMOGLOBIN 0.1 % (0.0-1.5); BG OXYGEN SATURATION 97.7 % (92.0-98.5); BG OXYHEMOGLOBIN 97.3 % (94.0-97.0); BG PCO2 47.6 mmHg (35.0-45.0); BG PH 7.447 (7.350-7.450); BG PO2 112.2 mmHg (75.0-100.0); BG SAMPLE SITE RIGHT RADIAL; BG TOTAL HEMOGLOBIN 8.9 g/dL (12.0-18.0); BG VENT MODE COOL AEROSOL
[2022-10-07] MEDS: INSULIN GLARGINE 100 UNITS/ML SUBCUT SCH (21:42)
[2022-10-08] VITALS (45 sets, daily range): BP systolic 79–133; BP diastolic 29–83
[2022-10-08] MEDS: BLOOD SUGAR DIAGNOSTIC STRIP TEST SCH ×5 (00:22→23:13)
[2022-10-08] MEDS: INSULIN LISPRO 100 UNITS/ML SUBCUT SCH ×5 (00:25→23:13)
[2022-10-08 05:49] LABS: BASOPHILS % 0.2 % (0.0-2.0); EOSINOPHILS % 3.1 % (0.0-5.0); HEMOGLOBIN. 9.5 g/dL (14.0-18.0); LYMPHOCYTES % 20.2 % (20.0-50.0); MEAN CORPUSCULAR HEMOGLOBIN 27.9 pg (28.0-32.0); MEAN CORPUSCULAR VOLUME 85.5 fL (80.0-94.0); MEAN PLATELET VOLUME 9.1 fl (7.4-10.4); MONOCYTES % 13.3 % (2.0-8.0); NEUTROPHILS % 63.2 % (40.0-76.0); PLATELET 86 x1000/uL (130-400); RED CELL DISTRIBUTION WIDTH 15.9 % (11.6-14.6)
[2022-10-08 06:01] LABS: CHLORIDE 112 mEq/L (98-107)
[2022-10-08] MEDS: DOPAMINE 400MG/250ML PREMIX 250 ML IV SCH (07:00)
[2022-10-08] MEDS: FUROSEMIDE 40MG/4ML VIAL IV SCH (09:35)
[2022-10-08] MEDS: PANTOPRAZOLE SODIUM 40 MG/VIAL IV SCH (09:35)
[2022-10-08 09:37] LABS: BG BASE EXCESS 5.5 mmol/L (-2.0-2.0); BG CARBOXYHEMOGLOBIN 0.3 % (0.5-1.5); BG DEOXYHEMOGLOBIN 2.2 % (0.0-5.0); BG FRACTION INSPIRED OXYGEN 34; BG HCO3 ACT 29.9 mmol/L (22.0-26.0); BG METHEMOGLOBIN 0.3 % (0.0-1.5); BG OXYGEN SATURATION 97.8 % (92.0-98.5); BG OXYHEMOGLOBIN 97.2 % (94.0-97.0); BG PO2 114.1 mmHg (75.0-100.0); BG SAMPLE SITE LEFT RADIAL; BG TOTAL HEMOGLOBIN 9.7 g/dL (12.0-18.0); BG VENT MODE NASAL CANNULA
[2022-10-08] MEDS: CARVEDILOL 3.125 MG TABLET PO SCH (21:39)
[2022-10-08] MEDS: INSULIN GLARGINE 100 UNITS/ML SUBCUT SCH (23:11)
[2022-10-09] VITALS (36 sets, daily range): BP systolic 106–139; BP diastolic 52–93
[2022-10-09] MEDS: INSULIN LISPRO 100 UNITS/ML SUBCUT SCH ×3 (05:24→17:51)
[2022-10-09] MEDS: BLOOD SUGAR DIAGNOSTIC STRIP TEST SCH ×3 (05:24→17:51)
[2022-10-09 05:43] LABS: BASOPHILS % 0.3 % (0.0-2.0); EOSINOPHILS % 2.8 % (0.0-5.0); HEMATOCRIT. 30.9 % (42.0-52.0); HEMOGLOBIN. 10.1 g/dL (14.0-18.0); LYMPHOCYTES % 14.9 % (20.0-50.0); MEAN CORPUSCULAR HEMOGLOBIN 27.9 pg (28.0-32.0); MEAN CORPUSCULAR VOLUME 84.9 fL (80.0-94.0); MEAN PLATELET VOLUME 8.6 fl (7.4-10.4); MONOCYTES % 10.4 % (2.0-8.0); NEUTROPHILS % 71.6 % (40.0-76.0); PLATELET 95 x1000/uL (130-400); RED BLOOD CELL COUNT 3.64 mill/uL (4.7-6.1); RED CELL DISTRIBUTION WIDTH 15.9 % (11.6-14.6)
[2022-10-09 06:19] LABS: CHLORIDE 115 mEq/L (98-107)
[2022-10-09 06:24] LABS: PHOSPHORUS 2.6 mg/dL (2.5-4.9)
[2022-10-09] MEDS: DOPAMINE 400MG/250ML PREMIX 250 ML IV SCH (07:00)
[2022-10-09] MEDS: PANTOPRAZOLE SODIUM 40 MG/VIAL IV SCH (09:30)
[2022-10-09] MEDS: FUROSEMIDE 40MG/4ML VIAL IV SCH (09:30)
[2022-10-09] MEDS: CARVEDILOL 3.125 MG TABLET PO SCH ×2 (09:34→21:40)
[2022-10-09] MEDS: INSULIN GLARGINE 100 UNITS/ML SUBCUT SCH (21:50)
[2022-10-10] VITALS (10 sets, daily range): BP systolic 104–139; BP diastolic 47–98
[2022-10-10 00:12] LABS: BG CARBOXYHEMOGLOBIN 0.3 % (0.5-1.5); BG HCO3 ACT 28.3 mmol/L (22.0-26.0); BG METHEMOGLOBIN 0.3 % (0.0-1.5); BG OXYGEN SATURATION 86.9 % (92.0-98.5); BG OXYHEMOGLOBIN 86.4 % (94.0-97.0); BG PCO2 36.8 mmHg (35.0-45.0); BG PH 7.504 (7.350-7.450); BG PO2 50.5 mmHg (75.0-100.0); BG SAMPLE SITE LEFT RADIAL; BG TOTAL HEMOGLOBIN 10.9 g/dL (12.0-18.0); BG VENT MODE MASK - SIMPLE
[2022-10-10] MEDS ORDERED: IPRATROPIUM/ALBUTEROL 0.5-3(2.5)MG/3ML NEB HHN PRN (00:45)
[2022-10-10] MEDS: BLOOD SUGAR DIAGNOSTIC STRIP TEST SCH ×5 (00:45→20:50)
[2022-10-10] MEDS: INSULIN LISPRO 100 UNITS/ML SUBCUT SCH ×5 (00:54→21:39)
[2022-10-10] MEDS: IPRATROPIUM/ALBUTEROL 0.5-3(2.5)MG/3ML NEB HHN SCH ×6 (04:43→23:45)
[2022-10-10 06:21] LABS: BASOPHILS % 0.3 % (0.0-2.0); EOSINOPHILS % 2.6 % (0.0-5.0); HEMATOCRIT. 29.5 % (42.0-52.0); HEMOGLOBIN. 9.7 g/dL (14.0-18.0); LYMPHOCYTES % 20.7 % (20.0-50.0); MEAN CORPUSCULAR HEMOGLOBIN 28.1 pg (28.0-32.0); MEAN CORPUSCULAR VOLUME 85.8 fL (80.0-94.0); MONOCYTES % 9.8 % (2.0-8.0); NEUTROPHILS % 66.6 % (40.0-76.0); PLATELET 103 x1000/uL (130-400); RED BLOOD CELL COUNT 3.44 mill/uL (4.7-6.1); RED CELL DISTRIBUTION WIDTH 16.5 % (11.6-14.6)
[2022-10-10 08:23] LABS: CHLORIDE 114 mEq/L (98-107)
[2022-10-10 08:31] LABS: PHOSPHORUS 2.8 mg/dL (2.5-4.9)
[2022-10-10] MEDS: FUROSEMIDE 40MG/4ML VIAL IV SCH (08:39)
[2022-10-10] MEDS: CARVEDILOL 3.125 MG TABLET PO SCH ×2 (08:39→20:49)
[2022-10-10] MEDS: PANTOPRAZOLE SODIUM 40 MG/VIAL IV SCH (08:39)
[2022-10-10] MEDS ORDERED: DEXTROSE 50% WATER 50ML SYRINGE IV PRN (10:30)
[2022-10-10 11:12] LABS: BG DEOXYHEMOGLOBIN 11.4 % (0.0-5.0); BG FRACTION INSPIRED OXYGEN 34; BG HCO3 ACT 30.7 mmol/L (22.0-26.0); BG METHEMOGLOBIN 0.1 % (0.0-1.5); BG OXYGEN SATURATION 88.6 % (92.0-98.5); BG OXYHEMOGLOBIN 88.5 % (94.0-97.0); BG PH 7.503 (7.350-7.450); BG TOTAL HEMOGLOBIN 10.1 g/dL (12.0-18.0); BG VENT MODE NASAL CANNULA
[2022-10-10] MEDS ORDERED: ACETAZOLAMIDE SODIUM 500MG/VIAL IV NR (13:00)
[2022-10-10] MEDS: INSULIN GLARGINE 100 UNITS/ML SUBCUT SCH (21:38)
[2022-10-11] VITALS (7 sets, daily range): BP systolic 116–131; BP diastolic 51–68
[2022-10-11] MEDS: IPRATROPIUM/ALBUTEROL 0.5-3(2.5)MG/3ML NEB HHN SCH ×5 (03:52→21:03)
[2022-10-11 06:11] LABS: BASOPHILS % 0.3 % (0.0-2.0); EOSINOPHILS % 2.2 % (0.0-5.0); HEMATOCRIT. 27.2 % (42.0-52.0); HEMOGLOBIN. 8.9 g/dL (14.0-18.0); LYMPHOCYTES % 17.8 % (20.0-50.0); MEAN CORPUSCULAR HEMOGLOBIN 28.3 pg (28.0-32.0); MEAN CORPUSCULAR VOLUME 86.8 fL (80.0-94.0); MEAN PLATELET VOLUME 9.3 fl (7.4-10.4); MONOCYTES % 9.8 % (2.0-8.0); NEUTROPHILS % 69.9 % (40.0-76.0); PLATELET 111 x1000/uL (130-400); RED BLOOD CELL COUNT 3.13 mill/uL (4.7-6.1); RED CELL DISTRIBUTION WIDTH 15.9 % (11.6-14.6)
[2022-10-11] MEDS: BLOOD SUGAR DIAGNOSTIC STRIP TEST SCH ×4 (06:44→21:00)
[2022-10-11] MEDS: INSULIN LISPRO 100 UNITS/ML SUBCUT SCH ×4 (06:44→22:44)
[2022-10-11 06:52] LABS: CHLORIDE 119 mEq/L (98-107)
[2022-10-11 07:14] LABS: PHOSPHORUS 3.5 mg/dL (2.5-4.9)
[2022-10-11] MEDS ORDERED: SODIUM CHLORIDE 0.45% 1,000 ML IV SCH (08:45)
[2022-10-11] MEDS ORDERED: POTASSIUM CHLORIDE 20MEQ TABLET SR PO NR (08:45)
[2022-10-11] MEDS ORDERED: POTASSIUM CHLORIDE 20MEQ TABLET SR PO ONE (09:00)
[2022-10-11] MEDS ORDERED: DEXTROSE 5% WATER 1,000 ML IV ONE ×2 (09:00→09:15)
[2022-10-11] MEDS: PANTOPRAZOLE SODIUM 40 MG/VIAL IV SCH (09:47)
[2022-10-11] MEDS: CARVEDILOL 3.125 MG TABLET PO SCH ×2 (09:47→22:45)
[2022-10-11] MEDS: FUROSEMIDE 40MG/4ML VIAL IV SCH (09:47)
[2022-10-11] MEDS: ENOXAPARIN 30MG/0.3ML SYR SUBCUT SCH (17:11)
[2022-10-11] MEDS: INSULIN GLARGINE 100 UNITS/ML SUBCUT SCH (22:45)
[2022-10-12] VITALS: BP 142/47
[2022-10-12] MEDS: IPRATROPIUM/ALBUTEROL 0.5-3(2.5)MG/3ML NEB HHN SCH ×6 (00:23→20:43)
[2022-10-12 04:00] VITALS: BP 133/66
[2022-10-12] MEDS: BLOOD SUGAR DIAGNOSTIC STRIP TEST SCH ×4 (06:50→21:52)
[2022-10-12 08:00] VITALS: BP 120/48
[2022-10-12] MEDS: CARVEDILOL 3.125 MG TABLET PO SCH ×2 (09:35→21:51)
[2022-10-12] MEDS: PANTOPRAZOLE SODIUM 40 MG/VIAL IV SCH (09:35)
[2022-10-12] MEDS: FUROSEMIDE 40MG/4ML VIAL IV SCH (09:35)
[2022-10-12] MEDS: INSULIN LISPRO 100 UNITS/ML SUBCUT SCH ×4 (09:37→21:58)
[2022-10-12 12:00] VITALS: BP 94/78
[2022-10-12 12:22] LABS: HEMATOCRIT 29.1 % (42.0-52.0); HEMOGLOBIN 9.4 g/dL (14.0-18.0); MEAN CORPUSCULAR VOLUME 86.8 fL (80.0-94.0); PLATELET 141 x1000/uL (130-400); RED BLOOD CELL COUNT 3.35 mill/uL (4.7-6.1); RED CELL DISTRIBUTION WIDTH 16.1 % (11.6-14.6)
[2022-10-12 12:44] LABS: CHLORIDE 117 mEq/L (98-107)
[2022-10-12 12:47] LABS: PHOSPHORUS 2.7 mg/dL (2.5-4.9)
[2022-10-12] MEDS ORDERED: POTASSIUM CHLORIDE 20MEQ TABLET SR PO NR (13:15)
[2022-10-12] MEDS ORDERED: SODIUM CHLORIDE 0.45% 1,000 ML IV ONE (14:15)
[2022-10-12 16:00] VITALS: BP 135/72
[2022-10-12] MEDS: ENOXAPARIN 30MG/0.3ML SYR SUBCUT SCH (18:11)
[2022-10-12 20:00] VITALS: BP 121/60
[2022-10-12] MEDS: INSULIN GLARGINE 100 UNITS/ML SUBCUT SCH (21:58)
[2022-10-13] VITALS: BP 142/72
[2022-10-13] MEDS: IPRATROPIUM/ALBUTEROL 0.5-3(2.5)MG/3ML NEB HHN SCH ×4 (00:22→12:53)
[2022-10-13 04:00] VITALS: BP 134/74
[2022-10-13] MEDS: BLOOD SUGAR DIAGNOSTIC STRIP TEST SCH (06:45)
[2022-10-13 06:54] LABS: CHLORIDE 117 mEq/L (98-107)
[2022-10-13 06:58] LABS: BASOPHILS % 0.4 % (0.0-2.0); EOSINOPHILS % 3.6 % (0.0-5.0); HEMATOCRIT. 29.7 % (42.0-52.0); HEMOGLOBIN. 9.9 g/dL (14.0-18.0); LYMPHOCYTES % 22.7 % (20.0-50.0); MEAN CORPUSCULAR HEMOGLOBIN 28.5 pg (28.0-32.0); MEAN CORPUSCULAR VOLUME 85.8 fL (80.0-94.0); MEAN PLATELET VOLUME 9.5 fl (7.4-10.4); MONOCYTES % 9.5 % (2.0-8.0); NEUTROPHILS % 63.8 % (40.0-76.0); PLATELET 152 x1000/uL (130-400); RED BLOOD CELL COUNT 3.46 mill/uL (4.7-6.1); RED CELL DISTRIBUTION WIDTH 16.2 % (11.6-14.6)
[2022-10-13] MEDS: INSULIN LISPRO 100 UNITS/ML SUBCUT SCH (07:20)
[2022-10-13 08:00] VITALS: BP 135/68
[2022-10-13] MEDS: CARVEDILOL 3.125 MG TABLET PO SCH (09:48)
[2022-10-13] MEDS: FUROSEMIDE 40MG/4ML VIAL IV SCH (09:49)
[2022-10-13] MEDS: PANTOPRAZOLE SODIUM 40 MG/VIAL IV SCH (09:49)
[2022-10-13] MEDS ORDERED: FURO-151 MT (10:48)
[2022-10-13] MEDS ORDERED: COR3 MT (10:48)
[2022-10-13 11:41] VITALS: BP 134/74
[2022-10-13 12:00] VITALS: BP 117/67
== END 2022-10-13 13:00 | disposition home health service (06) | DRG 870 ==
LOC: ER 14:09 → MICUSO 17:22 → EDBEDREQSVC 17:40 → EDBEDREQ 17:40 → EDBEDREQTM 17:40 → CVICU 10-02 08:22 → 3WST 10-09 17:31
PROVIDERS: ADMIT Hospitalist; ATTEND Hospitalist
PROC: 5A1955Z Respiratory Ventilation, Greater than 96 Consecutive Hours (ICD-10-PCS; principal; 2022-10-01)
PROC: 0BH17EZ Insertion of Endotracheal Airway into Trachea, Via Natural or Artificial Opening (ICD-10-PCS; 2022-10-01)
PROC: 02HV33Z Insertion of Infusion Device into Superior Vena Cava, Percutaneous Approach (ICD-10-PCS; 2022-10-02)
PROC: B548ZZA Ultrasonography of Superior Vena Cava, Guidance (ICD-10-PCS; 2022-10-02)
PROC: 0B9F8ZX Drainage of Right Lower Lung Lobe, Via Natural or Artificial Opening Endoscopic, Diagnostic (ICD-10-PCS; 2022-10-02)
PROC: 0W9B3ZZ Drainage of Left Pleural Cavity, Percutaneous Approach (ICD-10-PCS; 2022-10-04)
PROC: 0W993ZZ Drainage of Right Pleural Cavity, Percutaneous Approach (ICD-10-PCS; 2022-10-05)
PROC: 5A12012 Performance of Cardiac Output, Single, Manual (ICD-10-PCS; 2022-10-05)
PROC: 5A09357 Assistance with Respiratory Ventilation, Less than 24 Consecutive Hours, Continuous Positive Airway Pressure (ICD-10-PCS; 2022-10-08)
PROC: 5A09357 Assistance with Respiratory Ventilation, Less than 24 Consecutive Hours, Continuous Positive Airway Pressure (ICD-10-PCS; 2022-10-08)
DX: A41.9 Sepsis, unspecified organism (principal); E11.10 Type 2 diabetes mellitus with ketoacidosis without coma; I50.23 Acute on chronic systolic (congestive) heart failure; J96.21 Acute and chronic respiratory failure with hypoxia; J69.0 Pneumonitis due to inhalation of food and vomit; I46.9 Cardiac arrest, cause unspecified; R57.0 Cardiogenic shock; G93.40 Encephalopathy, unspecified; I69.351 Hemiplegia and hemiparesis following cerebral infarction affecting right dominant side; E44.1 Mild protein-calorie malnutrition; E87.0 Hyperosmolality and hypernatremia; R47.01 Aphasia; I31.39 Other pericardial effusion (noninflammatory); E87.3 Alkalosis; J91.8 Pleural effusion in other conditions classified elsewhere; D64.9 Anemia, unspecified; H54.8 Legal blindness, as defined in USA; E11.65 Type 2 diabetes mellitus with hyperglycemia; E78.5 Hyperlipidemia, unspecified; I11.0 Hypertensive heart disease with heart failure; J44.9 Chronic obstructive pulmonary disease, unspecified; Z20.822 Contact with and (suspected) exposure to COVID-19; E87.6 Hypokalemia; I25.5 Ischemic cardiomyopathy; I08.1 Rheumatic disorders of both mitral and tricuspid valves; I44.0 Atrioventricular block, first degree; I49.3 Ventricular premature depolarization; I44.7 Left bundle-branch block, unspecified; N40.0 Benign prostatic hyperplasia without lower urinary tract symptoms; I48.91 Unspecified atrial fibrillation; Z68.22 Body mass index [BMI] 22.0-22.9, adult; Z91.81 History of falling; Z79.4 Long term (current) use of insulin; Z74.01 Bed confinement status; I25.2 Old myocardial infarction; L89.156 Pressure-induced deep tissue damage of sacral region; Z79.899 Other long term (current) drug therapy; Z79.84 Long term (current) use of oral hypoglycemic drugs; Z91.14 Patient's other noncompliance with medication regimen; Z99.81 Dependence on supplemental oxygen
CPT/HCPCS: 31500; 32555; 36415; 36600; 71045; 76604; 80048; 80053; 80061; 81003; 82010; 82040; 82150; 82375; 82438; 82465; 82805; 82962; 83036; 83615; 83735; 83880; 83986; 84100; 84132; 84134; 84145; 84315; 84478; 84484; 85025; 85027; 87070; 87426; 88108; 92610; 92950; 93005; 93306; 93970; 94002; 94003; 94640; 94660; 97166; 99291; A6261; C9113; J0456; J0461; J0692; J1120; J1265; J1650; J1815; J1940; J2250; J2543; J2704; J3010; J3370; J3480; J3490; J7030; J7050; J7060

== ENCOUNTER 2023-03-28 21:02 | Emergency (ER) | payer MEDICARE, MEDICAID ==
[~2023-03-28] VITALS: Ht 167.6 cm; Wt 44.0 kg
[~2023-03-28 21:02] MED LIST changes: -ATEN50TA PO; +COR3 MT; +MIDO5TAB4 MT
[2023-03-28 21:04] VITALS: O2SAT 97
[2023-03-28] MEDS ORDERED: MORPHINE SULFATE 4 MG/ML CPJ (NOT FOR IM USE) IV STA (22:12)
[2023-03-28] MEDS ORDERED: ONDANSETRON HCL 4MG/2ML INJ IV STA (22:12)
[2023-03-28] MEDS ORDERED: SODIUM CHLORIDE 0.9% 500 ML IV ONE (22:15)
[2023-03-28 22:52] LABS: BASOPHILS % 0.2 % (0.0-2.0); HEMATOCRIT. 37.3 % (42.0-52.0); HEMOGLOBIN. 12.5 g/dL (14.0-18.0); MEAN CORPUSCULAR HEMOGLOBIN 28.9 pg (28.0-32.0); MEAN CORPUSCULAR HGB CONC 33.6 g/dL (31.0-37.0); MEAN PLATELET VOLUME 9.4 fl (7.4-10.4); NEUTROPHILS % 75.8 % (40.0-76.0); PLATELET 60 x1000/uL (130-400); RED BLOOD CELL COUNT 4.34 mill/uL (4.7-6.1); RED CELL DISTRIBUTION WIDTH 14.8 % (11.6-14.6); WHITE BLOOD COUNT 5.9 x1000/uL (4.5-11.0)
[2023-03-28 22:57] LABS: CHLORIDE 106 mEq/L (98-107); INDEX HEMOLYSI 1 (1-3); INDEX ICTERIC 1 (1-4); INDEX LIPEMIC 1 (1-3); POTASSIUM 4.1 mEq/L (3.5-5.1); SODIUM 138 mEq/L (136-145)
[2023-03-28 23:05] LABS: INR 1.2; PROTHROMBIN TIME 12.4 sec (9.6-11.0)
[2023-03-28 23:07] LABS: ALANINE AMINOTRANSFERASE 299 IU/L (13-61); ALBUMIN 3.7 g/dL (3.4-5.0); ASPARTATE AMINOTRANSFERASE 110 IU/L (15-37); BILIRUBIN TOTAL 0.8 mg/dL (0.1-1.0); CALCIUM 9.3 mg/dL (8.5-10.1); CARBON DIOXIDE 25 mEq/L (21-32); CREATININE 0.5 mg/dL (0.6-1.3); GLUCOSE 325 mg/dL (70-105); PROTEIN TOTAL 6.7 g/dL (6.0-8.3); UREA NITROGEN BLOOD 37 mg/dL (7-21)
[2023-03-29 01:45] VITALS: BP 118/68; PULSE 70; RESP 15; TEMP 98.3
== END 2023-03-29 02:22 | disposition home or self-care (01) ==
LOC: ER 21:28
DX: E11.65 Type 2 diabetes mellitus with hyperglycemia (principal); G89.29 Other chronic pain; I11.0 Hypertensive heart disease with heart failure; I50.9 Heart failure, unspecified; I25.2 Old myocardial infarction; Z86.73 Personal history of transient ischemic attack (TIA), and cerebral infarction without residual deficits; Z79.899 Other long term (current) drug therapy
CPT/HCPCS: 99284; 96374; 96361; 96375; 80053; 85025; 85610; 36415; 82962; J2405; J2270; J7030